=== PATIENT | male | born 1980 | race Caucasian/White ===

== ENCOUNTER 2017-12-06 08:48 | Emergency (ER) | payer MEDICAID ==
[~2017-12-06] VITALS: Ht 165.1 cm; Wt 67.0 kg
[2017-12-06 08:51] VITALS: BP 156/103; PULSE 111; RESP 20; TEMP 97.3; O2SAT 99
[2017-12-06] MEDS ORDERED: ZYPR10TA PO (09:20)
[2017-12-06] MEDS ORDERED: MULT1TAB46 (09:20)
[2017-12-06] MEDS ORDERED: ADVA100A INH (09:20)
[2017-12-06] MEDS ORDERED: VENTAER INH (09:20)
[2017-12-06] MEDS ORDERED: LAMO25 PO (09:20)
[2017-12-06] MEDS ORDERED: OMEP10SU (09:20)
[2017-12-06] MEDS ORDERED: CHLO10TA9 PO (09:20)
[2017-12-06] MEDS ORDERED: CLON.5 PO (09:20)
[2017-12-06] MEDS ORDERED: INVE9TAB (09:33)
[2017-12-06] MEDS ORDERED: CLON1TAB PO (09:33)
[2017-12-06 09:50] LABS: AUTOMATED NEUTROPHIL # 3.7 TH/MM3 (1.8-7.7); BASOPHIL # 0.1 TH/MM3 (0-0.2); BASOPHIL % 1.2 % (0.0-2.0); EOSINOPHIL % 0.4 % (0.0-4.0); HEMOGLOBIN 14.2 GM/DL (13.0-17.0); LYMPH % 8.2 % (9.0-44.0); LYMPHOCYTE # 0.4 TH/MM3 (1.0-4.8); MEAN CELL VOLUME 76.8 FL (80.0-100.0); MEAN PLATELET VOLUME 7.4 FL (7.0-11.0); MONO % 13.9 % (0.0-8.0); MONOCYTE # 0.7 TH/MM3 (0-0.9); NEUT % 76.3 % (16.0-70.0); PLATELET COUNT 340 TH/MM3 (150-450); RED BLOOD COUNT 5.08 MIL/MM3 (4.50-5.90); RED CELL DISTRIBUTION WIDTH 17.2 % (11.6-17.2); WHITE BLOOD COUNT 4.8 TH/MM3 (4.0-11.0)
[2017-12-06] MEDS ORDERED: LISI10TA3 PO (09:50)
[2017-12-06 09:52] LABS: MEAN CORPUSCULAR HGB CONC 36.4 % (32.0-36.0)
[2017-12-06 10:00] VITALS: BP 155/90; PULSE 99; RESP 15; O2SAT 98
--- NOTE | 2017-12-06 10:02 | PD ---
HPI Chief Complaint: Abnormal Results Time Seen by Provider: 09:46 Travel History International Travel<30 days: No Contact w/Intl Traveler<30days: No Traveled to known affect area: No History of Present Illness HPI This patient is brought in by correctional counselor/case manager because he had an outpatient blood draw yesterday that revealed hyponatremia. Patient says he feels okay. He does have some psychiatric illness. He reports that he drinks large quantities of plain water every day so he can stay hydrated. He used to be an alcoholic up to 9 years ago but has not had any alcohol since then. Denies vomiting. Takes no diuretics. Symptom severity is mild. No alleviating factors. Symptoms exacerbated by his excessive water intake PFSH Past Medical History Asthma: Yes Psychiatric: Yes (ocd) Schizophrenia: Yes Influenza Vaccination: No Past Surgical History Surgical History: No Previous Surgery Social History Alcohol Use: No Tobacco Use: Yes (ecig with nicotine) Substance Use: No Allergies-Medications (Allergen,Severity, Reaction): Coded Allergies: haloperidol (Verified Allergy, Intermediate, 12/06/17) shakes, tremors Uncoded Allergies: cats (Allergy, Unknown, 12/06/17) Reported Meds & Prescriptions Reported Meds & Active Scripts Active Reported Lisinopril 10 Mg Tab 10 Mg PO DAILY Clonazepam 1 Mg Tab 1 Mg PO BID Invega (Paliperidone ER) 9 Mg Tab 9 Mg DAILY Zyprexa (Olanzapine) 10 Mg Tab Unknown Dose PO BID Klonopin (Clonazepam) 0.5 Mg Tab 0.5 Mg PO BID Prilosec (Omeprazole Magnesium) 10 Mg Pow Chlorpromazine (Chlorpromazine HCl) 10 Mg Tab 10 Mg PO Q4H PRN Lamictal (Lamotrigine) 25 Mg Tab Unknown Dose PO BID Advair Diskus Inh (Fluticasone-Salmeterol Inh) 100-50 Mcg/Blist Aer 1 Puff INH BID Rinse mouth after use. Ventolin Hfa 18 GM Inh (Albuterol Sulfate) 90 Mcg/Act Aer 1 Puff INH Q4H PRN Multi Vitamin Daily (Multiple Vitamin) 1 Tab Tab Review of Systems General / Constitutional: No: Fever Eyes: No: Visual changes HENT: No: Headaches Cardiovascular: No: Chest Pain or Discomfort Respiratory: No: Shortness of Breath Gastrointestinal: No: Abdominal Pain Genitourinary: No: Dysuria Musculoskeletal: No: Pain Skin: No Rash Neurologic: No: Weakness Psychiatric: No: Depression Endocrine: No: Polydipsia Hematologic/Lymphatic: No: Easy Bruising Physical Exam Narrative GENERAL: Well-nourished, well-developed patient in no apparent distress. SKIN: Focused skin assessment reveals no rash and nodules. Skin is Warm and dry. HEAD: Atraumatic. Normocephalic. EYES: Pupils equal and round. No scleral icterus. No injection or drainage. ENT: No nasal bleeding or discharge. Mucous membranes pink and moist. NECK: Trachea midline. No JVD. CARDIOVASCULAR: Regular rate and rhythm. No murmur appreciated. RESPIRATORY: No accessory muscle use. Clear to auscultation. Breath sounds equal bilaterally. GASTROINTESTINAL: Abdomen soft, non-tender, nondistended. Hepatic and splenic margins not palpable. MUSCULOSKELETAL: No obvious deformities. No clubbing. No cyanosis. No edema. NEUROLOGICAL: Awake and alert. No obvious cranial nerve deficits. Motor grossly within normal limits. Normal speech. PSYCHIATRIC: Appropriate mood and affect; insight and judgment bit reduced Data Data Last Documented VS Vital Signs Date Time Temp Pulse Resp B/P (MAP) Pulse Ox O2 Delivery O2 Flow Rate FiO2 12/06/17 09:05 16 99 Room Air 12/06/17 08:51 97.3 111 156/103 (120) Orders Orders Complete Blood Count With Diff (12/06/17 09:01) Comprehensive Metabolic Panel (12/06/17 09:01) Labs Laboratory Tests Test 12/06/17 07:10 12/06/17 10:05 White Blood Count 4.8 TH/MM3 Red Blood Count 5.08 MIL/MM3 Hemoglobin 14.2 GM/DL Hematocrit 39.0 % Mean Corpuscular Volume 76.8 FL Mean Corpuscular Hemoglobin 28.0 PG Mean Corpuscular Hemoglobin Concent 36.4 % Red Cell Distribution Width 17.2 % Platelet Count 340 TH/MM3 Mean Platelet Volume 7.4 FL Neutrophils (%) (Auto) 76.3 % Lymphocytes (%) (Auto) 8.2 % Monocytes (%) (Auto) 13.9 % Eosinophils (%) (Auto) 0.4 % Basophils (%) (Auto) 1.2 % Neutrophils # (Auto) 3.7 TH/MM3 Lymphocytes # (Auto) 0.4 TH/MM3 Monocytes # (Auto) 0.7 TH/MM3 Eosinophils # (Auto) 0.0 TH/MM3 Basophils # (Auto) 0.1 TH/MM3 CBC Comment AUTO DIFF Differential Comment AUTO DIFF CONFIRMED Platelet Estimate NORMAL Platelet Morphology Comment NORMAL Roxane Cells Acanthocytes OCC Keratocytes OCC Blood Urea Nitrogen LESS THAN 1 MG/DL Creatinine 0.56 MG/DL Random Glucose 116 MG/DL Total Protein 6.4 GM/DL Albumin 3.4 GM/DL Calcium Level 8.4 MG/DL Alkaline Phosphatase 113 U/L Aspartate Amino Transf (AST/SGOT) 17 U/L Alanine Aminotransferase (ALT/SGPT) 21 U/L Total Bilirubin 0.3 MG/DL Sodium Level 123 MEQ/L Potassium Level 3.3 MEQ/L Chloride Level 89 MEQ/L Carbon Dioxide Level 22.2 MEQ/L Anion Gap 12 MEQ/L Estimat Glomerular Filtration Rate 164 ML/MIN MDM Medical Decision Making Medical Screen Exam Complete: Yes Emergency Medical Condition: Yes Medical Record Reviewed: Yes Differential Diagnosis Hyponatremia, renal failure, dehydration, medication side effect Narrative Course I have reviewed the patient's electronic medical record. I reviewed his outpatient lab studies from yesterday. His sodium was listed as less than 115, so the exact number is unclear. IV placed and labs sent He appears euvolemic by exam CBC is normal Metabolic profile reveals sodium of 123 Patient is asymptomatic and we have an obvious reason for him to be hyponatremic. The treatment is fluid restriction. We discussed this at length. I do not think he needs a hospital stay given he is asymptomatic and the treatment requires something he can do at home. He does not have mental status change. Diagnosis Primary Impression: Dilutional hyponatremia Additional Instructions: Utilize fluid restriction of 1.5 L per 24 hours The patient was advised to follow up with their physician and return if they worsen. Med/Other Pt SpecificInfo: Other Disposition: 01 DISCHARGE HOME Condition: Stable Ludin Yoon MD Dec 06, 2017 10:02
[2017-12-06 10:36] LABS: ACANTHOCYTES OCC (NORMAL); KERATOCYTES OCC (NORMAL)
[2017-12-06 10:43] LABS: ALBUMIN 3.4 GM/DL (3.4-5.0); ALKALINE PHOSPHATASE 113 U/L (45-117); ALT (GPT) 21 U/L (12-78); AST (GOT) 17 U/L (15-37); BICARBONATE 22.2 MEQ/L (21.0-32.0); BLOOD UREA NITROGEN LESS THAN 1 MG/DL (7-18); CALCIUM 8.4 MG/DL (8.5-10.1); CHLORIDE 89 MEQ/L (98-107); CREATININE 0.56 MG/DL (0.60-1.30); GLOMERULAR FILTRATION RATE 164 ML/MIN (>89); GLUCOSE,RANDOM 116 MG/DL (74-106); TOTAL BILIRUBIN ADULT 0.3 MG/DL (0.2-1.0); TOTAL PROTEIN 6.4 GM/DL (6.4-8.2)
[2017-12-06 10:45] LABS: SODIUM (NA) 123 MEQ/L (136-145)
[2017-12-06 11:38] VITALS: BP 154/70
== END 2017-12-06 11:41 | disposition home or self-care (01) ==
LOC: NEPE 08:48
DX: E87.1 Hypo-osmolality and hyponatremia (principal)
CPT/HCPCS: 80053; 85025; 99284

== ENCOUNTER 2018-04-21 17:44 | Inpatient (IN) ==
--- NOTE | 2018-04-21 18:41 | ED ---
HPI General Chief Complaint: Psychiatric Symptoms Stated Complaint: Pysch Eval/DBPD Time Seen by Provider: 04/21/18 18:24 Source: patient Mode of arrival: ambulatory Limitations: no limitations History of Present Illness HPI Narrative: Patient is a 37-year-old male presenting to the emergency department under Perez act for psychiatric evaluation. Per the Perez act report patient did not feel safe. Patient states that his apartment is a sanctuary. He states that he is afraid of people, crowds, not every day but most days. He states he becomes very anxious while he is in public. He felt that because he was feeling scared in his apartment he called 911 to be evaluated. Patient states that he is not on any blood pressure medicine, his blood pressure goes up when he is around people. Past medical history significant for schizophrenia, OCD. Patient denies any suicidal homicidal ideations. He denies any pain, he does report that he hears voices sometimes. Patient reports compliance with his medications. Symptom onset is unknown, symptoms are mild. Patient is cooperative in the emergency department. Onset (ago): unknown Duration: getting worse History of same: Yes Associated psychiatric symptoms: Reports racing thoughts and visual hallucinations Associated symptoms: Reports denies other symptoms Treatments prior to arrival: Reports none Related Data Home Medications Medication Instructions Recorded Confirmed Multi Vitamin 04/22/18 04/22/18 clonazepam 0.5 mg PO BID 04/22/18 04/22/18 lamotrigine [Lamictal] 150 mg PO DAILY 04/22/18 04/22/18 olanzapine [Zyprexa] 20 mg PO HS 04/22/18 04/22/18 paliperidone [Invega] 9 mg PO DAILY 04/22/18 04/22/18 Allergies Allergy/AdvReac Type Severity Reaction Status Date / Time cat dander Allergy Edema, Verified 04/21/18 18:01 Localized chlorpromazine Allergy Fever Verified 04/21/18 18:00 [From Thorazine] haloperidol [From Haldol] Allergy Shakiness Verified 04/21/18 18:00 [facility] Medical History Medical History Asthma (Acute) Bipolar 1 disorder (Acute) Hypertension (Acute) Obsessive compulsive disorder (Acute) Schizoaffective disorder (Acute) Surgical history unknown (Acute) Social History Social History Substance History: No History of Abuse and Past History ("Tried a little bit of everything ".) Smoking Status: Current every day smoker Tobacco Type: Cigarettes Packs Per Day: 2 Cigarettes Per Day: 40.0 Years Smoked: 20 Pack-Years: 40.00 How Often Do You Have a Drink Containing Alcohol: Never Hx Recent Travel: No Recent Travel in [facility] within the Last 8 Weeks: No Recent Out of Country Travel within the Last 8 Weeks: No Course Initial Documented Vital Signs Temperature 98.5 F 04/21/18 18:01 Pulse Rate 99 H 04/21/18 18:01 Respiratory Rate 16 04/21/18 18:01 Blood Pressure 203/127 H 04/21/18 18:01 Pulse Oximetry 99 04/21/18 18:01 Last Documented Vital Signs Temperature 97.9 F 04/23/18 20:00 Pulse Rate 70 04/24/18 01:00 Respiratory Rate 17 04/24/18 01:00 Blood Pressure 167/103 H 04/24/18 01:00 Pulse Oximetry 99 04/24/18 01:00 Medical Decision Making [facility] Narrative Medical Screen Exam Complete: Yes Emergency Medical Condition: Yes Lab Data Result diagrams: 04/23/18 10:14 04/23/18 15:00 Lab Results 04/21/18 04/21/18 04/21/18 Range/Units 19:20 19:20 19:20 WBC 3.4 L (4.0-11.0) th/mm3 RBC 4.40 L (4.50-5.90) mil/mm3 Hgb 12.1 L (13.0-17.0) gm/dL Hct 35.1 L (39.0-51.0) % MCV 79.8 L (80.0-100.0) fL MCH 27.6 (27.0-34.0) pg MCHC 34.6 (32.0-36.0) % RDW 14.8 (11.6-17.2) % Plt Count 246 (150-450) th/mm3 MPV 7.2 (7.0-11.0) fL Prelim Diff (Auto) Neut % (Auto) 51.0 (16.0-70.0) % Lymph % (Auto) 37.0 (9.0-44.0) % Banks % (Auto) 11.1 H (0.0-8.0) % Eos % (Auto) 0.6 (0.0-4.0) % Baso % (Auto) 0.3 (0.0-2.0) % Neut # (Auto) 1.7 L (1.8-7.7) th/mm3 Lymph # (Auto) 1.2 (1.0-4.8) th/mm3 Banks # (Auto) 0.4 (0.0-0.9) th/mm3 Eos # (Auto) 0.0 (0.0-0.4) th/mm3 Baso # (Auto) 0.0 (0.0-0.2) th/mm3 WBC Differential . Seg Neuts % (Manual) (16-70) % Lymphocytes % (Manual) (9-44) % Monocytes % (Manual) (0-8) % Abs Neuts (Manual) (1.8-7.7) th/mm3 Differential Comment Auto diff final Platelet Estimate (Normal) Platelet Morphology (Normal) RBC Morphology (Normal) PT (9.8-11.6) sec INR Ratio APTT (24.3-30.1) sec Sodium 110 L* (136-145) meq/L Potassium 4.1 (3.5-5.1) meq/L Chloride 77 L (98-107) meq/L Carbon Dioxide 21.7 (21.0-32.0) meq/L Anion Gap 11 (5-15) meq/L BUN 1 L (7-18) mg/dL Creatinine 0.63 (0.60-1.30) mg/dL Estimated GFR Greater than 89 (>89) mL/min POC Glucose (68-110) mg/dl Random Glucose 89 (74-106) mg/dL Calcium 8.2 L (8.5-10.1) mg/dL Phosphorus (2.5-4.9) mg/dL Magnesium 1.5 (1.5-2.5) mg/dL Total Bilirubin 0.4 (0.2-1.0) mg/dL AST 41 H (15-37) U/L ALT 28 (12-78) U/L Alkaline Phosphatase 94 (45-117) U/L Total Protein 7.1 (6.4-8.2) g/dL Albumin 3.6 (3.4-5.0) g/dL Vitamin B12 (193-986) pg/mL Folate (3.1-17.5) ng/mL TSH 1.490 (0.358-3.740) uIU/mL Urine Color (Yellw/Straw) Urine Clarity (Clear) Urine pH (5.0-8.5) Ur Specific [place] (1.002-1.035) Urine Protein (Neg-Trace) mg/dL Urine Glucose (UA) (Negative) mg/dL Urine Ketones (Negative) mg/dL Urine Occult Blood (Negative) Urine Nitrate (Negative) Urine Bilirubin (Negative) Urine Urobilinogen (Less than 2) mg/dL Ur Leukocyte Esterase (Negative) Urine WBC (0-5) /hpf Micro UA Comment Ur Microscopic Review Urine Culture Comments Nasal Screen MRSA (PCR) (Negative) Urine Opiates Screen Neg (Neg) Ur Barbiturates Screen Neg (Neg) Ur Amphetamines Screen Neg (Neg) U Benzodiazepines Scrn Neg (Neg) Urine Cocaine Screen Neg (Neg) U Cannabinoids Screen Neg (Neg) Serum Alcohol Less than 3 (0-5) mg/dL 04/21/18 04/21/18 04/21/18 Range/Units 19:20 22:13 22:18 WBC (4.0-11.0) th/mm3 RBC (4.50-5.90) mil/mm3 Hgb (13.0-17.0) gm/dL Hct (39.0-51.0) % MCV (80.0-100.0) fL MCH (27.0-34.0) pg MCHC (32.0-36.0) % RDW (11.6-17.2) % Plt Count (150-450) th/mm3 MPV (7.0-11.0) fL Prelim Diff (Auto) Neut % (Auto) (16.0-70.0) % Lymph % (Auto) (9.0-44.0) % Banks % (Auto) (0.0-8.0) % Eos % (Auto) (0.0-4.0) % Baso % (Auto) (0.0-2.0) % Neut # (Auto) (1.8-7.7) th/mm3 Lymph # (Auto) (1.0-4.8) th/mm3 [place] # (Auto) (0.0-0.9) th/mm3 Eos # (Auto) (0.0-0.4) th/mm3 Baso # (Auto) (0.0-0.2) th/mm3 WBC Differential Seg Neuts % (Manual) (16-70) % Lymphocytes % (Manual) (9-44) % Monocytes % (Manual) (0-8) % Abs Neuts (Manual) (1.8-7.7) th/mm3 Differential Comment Platelet Estimate (Normal) Platelet Morphology (Normal) RBC Morphology (Normal) PT (9.8-11.6) sec INR Ratio APTT (24.3-30.1) sec Sodium (136-145) meq/L Potassium (3.5-5.1) meq/L Chloride (98-107) meq/L Carbon Dioxide (21.0-32.0) meq/L Anion Gap (5-15) meq/L BUN (7-18) mg/dL Creatinine (0.60-1.30) mg/dL Estimated GFR (>89) mL/min POC Glucose 114 H (68-110) mg/dl Random Glucose (74-106) mg/dL Calcium (8.5-10.1) mg/dL Phosphorus (2.5-4.9) mg/dL Magnesium (1.5-2.5) mg/dL Total Bilirubin (0.2-1.0) mg/dL AST (15-37) U/L ALT (12-78) U/L Alkaline Phosphatase (45-117) U/L Total Protein (6.4-8.2) g/dL Albumin (3.4-5.0) g/dL Vitamin B12 (193-986) pg/mL Folate (3.1-17.5) ng/mL TSH (0.358-3.740) uIU/mL Urine Color Colorless (Yellw/Straw) Urine Clarity Clear (Clear) Urine pH 7.0 (5.0-8.5) Ur Specific [place] 1.000 L (1.002-1.035) Urine Protein Negative (Neg-Trace) mg/dL Urine Glucose (UA) Negative (Negative) mg/dL Urine Ketones Negative (Negative) mg/dL Urine Occult Blood Negative (Negative) Urine Nitrate Negative (Negative) Urine Bilirubin Negative (Negative) Urine Urobilinogen Less than 2 (Less than 2) mg/dL Ur Leukocyte Esterase Negative (Negative) Urine WBC Less than 1 (0-5) /hpf Micro UA Comment Culture not ind Ur Microscopic Review Not Reportable Urine Culture Comments Culture not ind Nasal Screen MRSA (PCR) Not detected (Negative) Urine Opiates Screen (Neg) Ur Barbiturates Screen (Neg) Ur Amphetamines Screen (Neg) U Benzodiazepines Scrn (Neg) Urine Cocaine Screen (Neg) U Cannabinoids Screen (Neg) Serum Alcohol (0-5) mg/dL 04/21/18 04/22/18 04/22/18 Range/Units 23:30 03:40 03:40 WBC 2.1 L (4.0-11.0) th/mm3 RBC 5.11 (4.50-5.90) mil/mm3 Hgb 14.1 D (13.0-17.0) gm/dL Hct 41.4 (39.0-51.0) % MCV 81.0 (80.0-100.0) fL MCH 27.6 (27.0-34.0) pg MCHC 34.1 (32.0-36.0) % RDW 15.1 (11.6-17.2) % Plt Count 297 (150-450) th/mm3 MPV 7.6 (7.0-11.0) fL Prelim Diff (Auto) Manual diff required Neut % (Auto) (16.0-70.0) % Lymph % (Auto) (9.0-44.0) % Banks % (Auto) (0.0-8.0) % Eos % (Auto) (0.0-4.0) % Baso % (Auto) (0.0-2.0) % Neut # (Auto) (1.8-7.7) th/mm3 Lymph # (Auto) (1.0-4.8) th/mm3 [place] # (Auto) (0.0-0.9) th/mm3 Eos # (Auto) (0.0-0.4) th/mm3 Baso # (Auto) (0.0-0.2) th/mm3 WBC Differential Manual diff final Seg Neuts % (Manual) 43 (16-70) % Lymphocytes % (Manual) 50 H (9-44) % Monocytes % (Manual) 7 (0-8) % Abs Neuts (Manual) 0.9 L (1.8-7.7) th/mm3 Differential Comment . Platelet Estimate Normal (Normal) Platelet Morphology Normal (Normal) RBC Morphology Normal (Normal) PT 10.3 (9.8-11.6) sec INR 1.0 Ratio APTT 31.7 H (24.3-30.1) sec Sodium 123 L* D (136-145) meq/L Potassium (3.5-5.1) meq/L Chloride (98-107) meq/L Carbon Dioxide (21.0-32.0) meq/L Anion Gap (5-15) meq/L BUN (7-18) mg/dL Creatinine (0.60-1.30) mg/dL Estimated GFR (>89) mL/min POC Glucose (68-110) mg/dl Random Glucose (74-106) mg/dL Calcium (8.5-10.1) mg/dL Phosphorus (2.5-4.9) mg/dL Magnesium (1.5-2.5) mg/dL Total Bilirubin (0.2-1.0) mg/dL AST (15-37) U/L ALT (12-78) U/L Alkaline Phosphatase (45-117) U/L Total Protein (6.4-8.2) g/dL Albumin (3.4-5.0) g/dL Vitamin B12 (193-986) pg/mL Folate (3.1-17.5) ng/mL TSH (0.358-3.740) uIU/mL Urine Color (Yellw/Straw) Urine Clarity (Clear) Urine pH (5.0-8.5) Ur Specific [place] (1.002-1.035) Urine Protein (Neg-Trace) mg/dL Urine Glucose (UA) (Negative) mg/dL Urine Ketones (Negative) mg/dL Urine Occult Blood (Negative) Urine Nitrate (Negative) Urine Bilirubin (Negative) Urine Urobilinogen (Less than 2) mg/dL Ur Leukocyte Esterase (Negative) Urine WBC (0-5) /hpf Micro UA Comment Ur Microscopic Review Urine Culture Comments Nasal Screen MRSA (PCR) (Negative) Urine Opiates Screen (Neg) Ur Barbiturates Screen (Neg) Ur Amphetamines Screen (Neg) U Benzodiazepines Scrn (Neg) Urine Cocaine Screen (Neg) U Cannabinoids Screen (Neg) Serum Alcohol (0-5) mg/dL 04/22/18 04/22/18 04/22/18 Range/Units 03:40 08:33 11:48 WBC (4.0-11.0) th/mm3 RBC (4.50-5.90) mil/mm3 Hgb (13.0-17.0) gm/dL Hct (39.0-51.0) % MCV (80.0-100.0) fL MCH (27.0-34.0) pg MCHC (32.0-36.0) % RDW (11.6-17.2) % Plt Count (150-450) th/mm3 MPV (7.0-11.0) fL Prelim Diff (Auto) Neut % (Auto) (16.0-70.0) % Lymph % (Auto) (9.0-44.0) % [place] % (Auto) (0.0-8.0) % Eos % (Auto) (0.0-4.0) % Baso % (Auto) (0.0-2.0) % Neut # (Auto) (1.8-7.7) th/mm3 Lymph # (Auto) (1.0-4.8) th/mm3 [place] # (Auto) (0.0-0.9) th/mm3 Eos # (Auto) (0.0-0.4) th/mm3 Baso # (Auto) (0.0-0.2) th/mm3 WBC Differential Seg Neuts % (Manual) (16-70) % Lymphocytes % (Manual) (9-44) % Monocytes % (Manual) (0-8) % Abs Neuts (Manual) (1.8-7.7) th/mm3 Differential Comment Platelet Estimate (Normal) Platelet Morphology (Normal) RBC Morphology (Normal) PT (9.8-11.6) sec INR Ratio APTT (24.3-30.1) sec Sodium 131 L 128 L 129 L (136-145) meq/L Potassium 3.8 (3.5-5.1) meq/L Chloride 98 D (98-107) meq/L Carbon Dioxide 24.4 (21.0-32.0) meq/L Anion Gap 9 (5-15) meq/L BUN 2 L (7-18) mg/dL Creatinine 0.59 L (0.60-1.30) mg/dL Estimated GFR Greater than 89 (>89) mL/min POC Glucose (68-110) mg/dl Random Glucose 107 H (74-106) mg/dL Calcium 8.7 (8.5-10.1) mg/dL Phosphorus 3.3 (2.5-4.9) mg/dL Magnesium 2.0 (1.5-2.5) mg/dL Total Bilirubin 0.3 (0.2-1.0) mg/dL AST 22 (15-37) U/L ALT 26 (12-78) U/L Alkaline Phosphatase 105 (45-117) U/L Total Protein 7.5 (6.4-8.2) g/dL Albumin 4.0 (3.4-5.0) g/dL Vitamin B12 (193-986) pg/mL Folate (3.1-17.5) ng/mL TSH (0.358-3.740) uIU/mL Urine Color (Yellw/Straw) Urine Clarity (Clear) Urine pH (5.0-8.5) Ur Specific [place] (1.002-1.035) Urine Protein (Neg-Trace) mg/dL Urine Glucose (UA) (Negative) mg/dL Urine Ketones (Negative) mg/dL Urine Occult Blood (Negative) Urine Nitrate (Negative) Urine Bilirubin (Negative) Urine Urobilinogen (Less than 2) mg/dL Ur Leukocyte Esterase (Negative) Urine WBC (0-5) /hpf Micro UA Comment Ur Microscopic Review Urine Culture Comments Nasal Screen MRSA (PCR) (Negative) Urine Opiates Screen (Neg) Ur Barbiturates Screen (Neg) Ur Amphetamines Screen (Neg) U Benzodiazepines Scrn (Neg) Urine Cocaine Screen (Neg) U Cannabinoids Screen (Neg) Serum Alcohol (0-5) mg/dL 04/22/18 04/22/18 04/23/18 Range/Units 14:20 16:26 05:18 WBC (4.0-11.0) th/mm3 RBC (4.50-5.90) mil/mm3 Hgb (13.0-17.0) gm/dL Hct (39.0-51.0) % MCV (80.0-100.0) fL MCH (27.0-34.0) pg MCHC (32.0-36.0) % RDW (11.6-17.2) % Plt Count (150-450) th/mm3 MPV (7.0-11.0) fL Prelim Diff (Auto) Neut % (Auto) (16.0-70.0) % Lymph % (Auto) (9.0-44.0) % [place] % (Auto) (0.0-8.0) % Eos % (Auto) (0.0-4.0) % Baso % (Auto) (0.0-2.0) % Neut # (Auto) (1.8-7.7) th/mm3 Lymph # (Auto) (1.0-4.8) th/mm3 [place] # (Auto) (0.0-0.9) th/mm3 Eos # (Auto) (0.0-0.4) th/mm3 Baso # (Auto) (0.0-0.2) th/mm3 WBC Differential Seg Neuts % (Manual) (16-70) % Lymphocytes % (Manual) (9-44) % Monocytes % (Manual) (0-8) % Abs Neuts (Manual) (1.8-7.7) th/mm3 Differential Comment Platelet Estimate (Normal) Platelet Morphology (Normal) RBC Morphology (Normal) PT (9.8-11.6) sec INR Ratio APTT (24.3-30.1) sec Sodium 131 L 130 L 130 L (136-145) meq/L Potassium (3.5-5.1) meq/L Chloride (98-107) meq/L Carbon Dioxide (21.0-32.0) meq/L Anion Gap (5-15) meq/L BUN (7-18) mg/dL Creatinine (0.60-1.30) mg/dL Estimated GFR (>89) mL/min POC Glucose (68-110) mg/dl Random Glucose (74-106) mg/dL Calcium (8.5-10.1) mg/dL Phosphorus (2.5-4.9) mg/dL Magnesium (1.5-2.5) mg/dL Total Bilirubin (0.2-1.0) mg/dL AST (15-37) U/L ALT (12-78) U/L Alkaline Phosphatase (45-117) U/L Total Protein (6.4-8.2) g/dL Albumin (3.4-5.0) g/dL Vitamin B12 295 (193-986) pg/mL Folate 12.9 (3.1-17.5) ng/mL TSH (0.358-3.740) uIU/mL Urine Color (Yellw/Straw) Urine Clarity (Clear) Urine pH (5.0-8.5) Ur Specific [place] (1.002-1.035) Urine Protein (Neg-Trace) mg/dL Urine Glucose (UA) (Negative) mg/dL Urine Ketones (Negative) mg/dL Urine Occult Blood (Negative) Urine Nitrate (Negative) Urine Bilirubin (Negative) Urine Urobilinogen (Less than 2) mg/dL Ur Leukocyte Esterase (Negative) Urine WBC (0-5) /hpf Micro UA Comment Ur Microscopic Review Urine Culture Comments Nasal Screen MRSA (PCR) (Negative) Urine Opiates Screen (Neg) Ur Barbiturates Screen (Neg) Ur Amphetamines Screen (Neg) U Benzodiazepines Scrn (Neg) Urine Cocaine Screen (Neg) U Cannabinoids Screen (Neg) Serum Alcohol (0-5) mg/dL 04/23/18 04/23/18 Range/Units 10:14 15:00 WBC 2.9 L (4.0-11.0) th/mm3 RBC 4.46 L (4.50-5.90) mil/mm3 Hgb 12.1 L D (13.0-17.0) gm/dL Hct 35.6 L (39.0-51.0) % MCV 79.9 L (80.0-100.0) fL MCH 27.1 (27.0-34.0) pg MCHC 33.9 (32.0-36.0) % RDW 14.9 (11.6-17.2) % Plt Count 250 (150-450) th/mm3 MPV 7.4 (7.0-11.0) fL Prelim Diff (Auto) Neut % (Auto) 58.7 (16.0-70.0) % Lymph % (Auto) 30.2 (9.0-44.0) % [place] % (Auto) 10.5 H (0.0-8.0) % Eos % (Auto) 0.3 (0.0-4.0) % Baso % (Auto) 0.3 (0.0-2.0) % Neut # (Auto) 1.7 L (1.8-7.7) th/mm3 Lymph # (Auto) 0.9 L (1.0-4.8) th/mm3 [place] # (Auto) 0.3 (0.0-0.9) th/mm3 Eos # (Auto) 0.0 (0.0-0.4) th/mm3 Baso # (Auto) 0.0 (0.0-0.2) th/mm3 WBC Differential . Seg Neuts % (Manual) (16-70) % Lymphocytes % (Manual) (9-44) % Monocytes % (Manual) (0-8) % Abs Neuts (Manual) (1.8-7.7) th/mm3 Differential Comment Auto diff final Platelet Estimate (Normal) Platelet Morphology (Normal) RBC Morphology (Normal) PT (9.8-11.6) sec INR Ratio APTT (24.3-30.1) sec Sodium 129 L (136-145) meq/L Potassium 4.0 (3.5-5.1) meq/L Chloride 97 L (98-107) meq/L Carbon Dioxide 24.3 (21.0-32.0) meq/L Anion Gap 8 (5-15) meq/L BUN 3 L (7-18) mg/dL Creatinine 0.77 (0.60-1.30) mg/dL Estimated GFR Greater than 89 (>89) mL/min POC Glucose (68-110) mg/dl Random Glucose 134 H (74-106) mg/dL Calcium 8.9 (8.5-10.1) mg/dL Phosphorus (2.5-4.9) mg/dL Magnesium (1.5-2.5) mg/dL Total Bilirubin (0.2-1.0) mg/dL AST (15-37) U/L ALT (12-78) U/L Alkaline Phosphatase (45-117) U/L Total Protein (6.4-8.2) g/dL Albumin (3.4-5.0) g/dL Vitamin B12 (193-986) pg/mL Folate (3.1-17.5) ng/mL TSH (0.358-3.740) uIU/mL Urine Color (Yellw/Straw) Urine Clarity (Clear) Urine pH (5.0-8.5) Ur Specific [place] (1.002-1.035) Urine Protein (Neg-Trace) mg/dL Urine Glucose (UA) (Negative) mg/dL Urine Ketones (Negative) mg/dL Urine Occult Blood (Negative) Urine Nitrate (Negative) Urine Bilirubin (Negative) Urine Urobilinogen (Less than 2) mg/dL Ur Leukocyte Esterase (Negative) Urine WBC (0-5) /hpf Micro UA Comment Ur Microscopic Review Urine Culture Comments Nasal Screen MRSA (PCR) (Negative) Urine Opiates Screen (Neg) Ur Barbiturates Screen (Neg) Ur Amphetamines Screen (Neg) U Benzodiazepines Scrn (Neg) Urine Cocaine Screen (Neg) U Cannabinoids Screen (Neg) Serum Alcohol (0-5) mg/dL Imaging Data Radiologist's impression: Chest X-Ray 04/22/18 00:00 CONCLUSION: 1. No acute cardiopulmonary disease. ECG Data Attestation: I personally reviewed and interpreted this ECG as follows: Interpretation: Twelve-lead EKG was reviewed by me. Normal sinus rhythm, normal axis, nonspecific S or T wave changes. Heart rate of 72 bpm. Discharge Plan Discharge Disposition Patient Disposition: 30 Still Patient Physicians Team ED Provider: Sierra Miles ED Midlevel Provider: Nina Epps Primary Care Provider: UNKNOWN, Attending Provider: Tanvir Rebolledo Other Providers: Osmani Ryan ; Kvng Hurtado Status ED Status: Left Department Discharge Information Discharge Date/Time: 04/21/18 22:17
[2018-04-21 19:42] LABS: Baso % (Auto) 0.3 % (0.0-2.0); Eos % (Auto) 0.6 % (0.0-4.0); Hematocrit 35.1 % (39.0-51.0); Hemoglobin 12.1 gm/dL (13.0-17.0); Lymph # (Auto) 1.2 th/mm3 (1.0-4.8); Mean Corpuscular HGB Conc 34.6 % (32.0-36.0); Mean Corpuscular Hemoglobin 27.6 pg (27.0-34.0); Mean Corpuscular Volume 79.8 fL (80.0-100.0); Mean Platelet Volume 7.2 fL (7.0-11.0); Mono # (Auto) 0.4 th/mm3 (0.0-0.9); Mono % (Auto) 11.1 % (0.0-8.0); Neut # (Auto) 1.7 th/mm3 (1.8-7.7); Platelet Count 246 th/mm3 (150-450); Red Cell Distribution Width 14.8 % (11.6-17.2); White Blood Count 3.4 th/mm3 (4.0-11.0)
[2018-04-21 19:53] LABS: Bilirubin,Urine Negative (Negative); Clarity,Urine Clear (Clear); Color,Urine Colorless (Yellw/Straw); Glucose,Urine (UA) Negative (Negative); Leukocyte Esterase,Urine Negative (Negative); Nitrite,Urine Negative (Negative)
[2018-04-21 19:59] LABS: Amphetamine Screen,Urine Neg (Neg); Barbiturate Screen,Urine Neg (Neg); Cannabinoid Screen,Urine Neg (Neg); Cocaine Screen,Urine Neg (Neg)
[2018-04-21 20:00] LABS: Opiate Screen,Urine Neg (Neg)
[2018-04-21] MEDS ORDERED: Metoprolol Inj 5 MG/5 ML Vial IV.PUSH ONE (20:04)
[2018-04-21 20:15] LABS: Anion Gap 11 meq/L (5-15)
[2018-04-21 20:22] LABS: Alanine Aminotransferase 28 U/L (12-78); Albumin 3.6 g/dL (3.4-5.0); Alkaline Phosphatase 94 U/L (45-117); Aspartate Aminotransferase 41 U/L (15-37); Blood Urea Nitrogen 1 mg/dL (7-18); Calcium 8.2 mg/dL (8.5-10.1); Carbon Dioxide 21.7 meq/L (21.0-32.0); Chloride 77 meq/L (98-107); Glomerular Filtration Rate Greater Than 89 mL/min (>89); Glucose,Random 89 mg/dL (74-106); Magnesium 1.5 mg/dL (1.5-2.5); Total Protein 7.1 g/dL (6.4-8.2)
[2018-04-21 20:23] LABS: Potassium 4.1 meq/L (3.5-5.1); Sodium 110 meq/L (136-145)
--- NOTE | 2018-04-21 20:42 | ED ---
HPI General Chief Complaint: Psychiatric Symptoms Stated Complaint: Pysch Eval/DBPD Time Seen by Provider: 04/21/18 18:24 Source: patient Mode of arrival: ambulatory Limitations: no limitations History of Present Illness HPI Narrative: 37-year-old male who was brought in [facility] because he was unable to take care of himself. He complained of visual and auditory hallucinations and anxiety. He told me that he has been drinking a lot of water almost 2 gallons a day and a lot of tea. Patient denies of any headache or dizziness. The exact onset of symptoms is difficult to be determined given his condition but he did appear to be disheveled. Vital signs were suggestive of hypertension. Duration: intermittent and getting worse Associated symptoms: Reports denies other symptoms Treatments prior to arrival: Reports none Related Data Home Medications Medication Instructions Recorded Confirmed Multi Vitamin 04/22/18 04/22/18 clonazepam 0.5 mg PO BID 04/22/18 04/22/18 lamotrigine [Lamictal] 150 mg PO DAILY 04/22/18 04/22/18 olanzapine [Zyprexa] 20 mg PO HS 04/22/18 04/22/18 paliperidone [Invega] 9 mg PO DAILY 04/22/18 04/22/18 Allergies Allergy/AdvReac Type Severity Reaction Status Date / Time cat dander Allergy Edema, Verified 04/21/18 18:01 Localized chlorpromazine Allergy Fever Verified 04/21/18 18:00 [From Thorazine] haloperidol [From Haldol] Allergy Shakiness Verified 04/21/18 18:00 Review of Systems ROS: all other systems reviewed are negative [facility] Medical History Medical History Asthma (Acute) Bipolar 1 disorder (Acute) Hypertension (Acute) Obsessive compulsive disorder (Acute) Schizoaffective disorder (Acute) Surgical history unknown (Acute) Social History Social History Substance History: No History of Abuse and Past History ("Tried a little bit of everything ".) Smoking Status: Current every day smoker Tobacco Type: Cigarettes Packs Per Day: 2 Cigarettes Per Day: 40.0 Years Smoked: 20 Pack-Years: 40.00 How Often Do You Have a Drink Containing Alcohol: Never Hx Recent Travel: No Recent Travel in [facility] within the Last 8 Weeks: No Recent Out of Country Travel within the Last 8 Weeks: No Immunization History Tetanus Immunization: Unsure Exam Narrative Exam Narrative: GENERAL: Awake, alert, anxious, disheveled SKIN: Focused skin assessment warm/dry. Disheveled. HEAD: Atraumatic. Normocephalic. EYES: Pupils equal and round. No scleral icterus. No injection or drainage. ENT: No nasal bleeding or discharge. Mucous membranes pink and moist. NECK: Trachea midline. No JVD. CARDIOVASCULAR: Regular rate and rhythm. No murmur appreciated. RESPIRATORY: No accessory muscle use. Clear to auscultation. Breath sounds equal bilaterally. GASTROINTESTINAL: Abdomen soft, non-tender, nondistended. Hepatic and splenic margins not palpable. MUSCULOSKELETAL: No obvious deformities. No clubbing. No cyanosis. No edema. NEUROLOGICAL: Awake and alert. No obvious cranial nerve deficits. Motor grossly within normal limits. Normal speech. PSYCHIATRIC: Appropriate mood and affect; insight and judgment normal. Course Initial Documented Vital Signs Temperature 98.5 F 04/21/18 18:01 Pulse Rate 99 H 04/21/18 18:01 Respiratory Rate 16 04/21/18 18:01 Blood Pressure 203/127 H 04/21/18 18:01 Pulse Oximetry 99 04/21/18 18:01 Last Documented Vital Signs Temperature 97.9 F 04/23/18 20:00 Pulse Rate 70 04/24/18 01:00 Respiratory Rate 17 04/24/18 01:00 Blood Pressure 167/103 H 04/24/18 01:00 Pulse Oximetry 99 04/24/18 01:00 Critical Care Time Critical Care Time: Yes Total Critical Care Time: 30 Attestation: Aggregate critical care time was 30 minutes. Time to perform other separately billable procedures was not included in the critical care time. My time did not include minutes spent treating any other patients simultaneously or on activities that did not directly contribute to the patient's treatment. The services I provided to this patient were to treat and/or prevent clinically significant deterioration that could result in: Critical hyponatremia, 3% hypertonic saline replacement I provided critical care services requiring my management, as noted below: Chart data review, documentation time, medication orders and management, vital sign assessments/reviewing monitor data, ordering and reviewing lab tests, ordering and interpreting/reviewing x-rays and diagnostic studies, care of the patient and discussion of the patient with the admitting physicians. Medical Decision Making MDM Narrative Medical decision making narrative: 8:47 PM blood test result shows critical value of sodium of 110. The last sodium value was 123 few months ago. I have ordered 3% normal saline for the patient. I discussed the case with wind turbine electrical engineer Dr. Wadsworth who has accepted the patient. The nurse told me that he has urinated 5 L of urine since he has been here and continues to ask for water. With that information probably is dilutional hyponatremia from compulsive water drinking. He is not on lithium. Medical Screen Exam Complete: Yes Emergency Medical Condition: Yes Lab Data Result diagrams: 04/23/18 10:14 04/23/18 15:00 Lab Results 04/21/18 04/21/18 04/21/18 Range/Units 19:20 19:20 19:20 WBC 3.4 L (4.0-11.0) th/mm3 RBC 4.40 L (4.50-5.90) mil/mm3 Hgb 12.1 L (13.0-17.0) gm/dL Hct 35.1 L (39.0-51.0) % MCV 79.8 L (80.0-100.0) fL MCH 27.6 (27.0-34.0) pg MCHC 34.6 (32.0-36.0) % RDW 14.8 (11.6-17.2) % Plt Count 246 (150-450) th/mm3 MPV 7.2 (7.0-11.0) fL Prelim Diff (Auto) Neut % (Auto) 51.0 (16.0-70.0) % Lymph % (Auto) 37.0 (9.0-44.0) % [place] % (Auto) 11.1 H (0.0-8.0) % Eos % (Auto) 0.6 (0.0-4.0) % Baso % (Auto) 0.3 (0.0-2.0) % Neut # (Auto) 1.7 L (1.8-7.7) th/mm3 Lymph # (Auto) 1.2 (1.0-4.8) th/mm3 [place] # (Auto) 0.4 (0.0-0.9) th/mm3 Eos # (Auto) 0.0 (0.0-0.4) th/mm3 Baso # (Auto) 0.0 (0.0-0.2) th/mm3 WBC Differential . Seg Neuts % (Manual) (16-70) % Lymphocytes % (Manual) (9-44) % Monocytes % (Manual) (0-8) % Abs Neuts (Manual) (1.8-7.7) th/mm3 Differential Comment Auto diff final Platelet Estimate (Normal) Platelet Morphology (Normal) RBC Morphology (Normal) PT (9.8-11.6) sec INR Ratio APTT (24.3-30.1) sec Sodium 110 L* (136-145) meq/L Potassium 4.1 (3.5-5.1) meq/L Chloride 77 L (98-107) meq/L Carbon Dioxide 21.7 (21.0-32.0) meq/L Anion Gap 11 (5-15) meq/L BUN 1 L (7-18) mg/dL Creatinine 0.63 (0.60-1.30) mg/dL Estimated GFR Greater than 89 (>89) mL/min POC Glucose (68-110) mg/dl Random Glucose 89 (74-106) mg/dL Calcium 8.2 L (8.5-10.1) mg/dL Phosphorus (2.5-4.9) mg/dL Magnesium 1.5 (1.5-2.5) mg/dL Total Bilirubin 0.4 (0.2-1.0) mg/dL AST 41 H (15-37) U/L ALT 28 (12-78) U/L Alkaline Phosphatase 94 (45-117) U/L Total Protein 7.1 (6.4-8.2) g/dL Albumin 3.6 (3.4-5.0) g/dL Vitamin B12 (193-986) pg/mL Folate (3.1-17.5) ng/mL TSH 1.490 (0.358-3.740) uIU/mL Urine Color (Yellw/Straw) Urine Clarity (Clear) Urine pH (5.0-8.5) Ur Specific [place] (1.002-1.035) Urine Protein (Neg-Trace) mg/dL Urine Glucose (UA) (Negative) mg/dL Urine Ketones (Negative) mg/dL Urine Occult Blood (Negative) Urine Nitrate (Negative) Urine Bilirubin (Negative) Urine Urobilinogen (Less than 2) mg/dL Ur Leukocyte Esterase (Negative) Urine WBC (0-5) /hpf Micro UA Comment Ur Microscopic Review Urine Culture Comments Nasal Screen MRSA (PCR) (Negative) Urine Opiates Screen Neg (Neg) Ur Barbiturates Screen Neg (Neg) Ur Amphetamines Screen Neg (Neg) U Benzodiazepines Scrn Neg (Neg) Urine Cocaine Screen Neg (Neg) U Cannabinoids Screen Neg (Neg) Serum Alcohol Less than 3 (0-5) mg/dL 04/21/18 04/21/18 04/21/18 Range/Units 19:20 22:13 22:18 WBC (4.0-11.0) th/mm3 RBC (4.50-5.90) mil/mm3 Hgb (13.0-17.0) gm/dL Hct (39.0-51.0) % MCV (80.0-100.0) fL MCH (27.0-34.0) pg MCHC (32.0-36.0) % RDW (11.6-17.2) % Plt Count (150-450) th/mm3 MPV (7.0-11.0) fL Prelim Diff (Auto) Neut % (Auto) (16.0-70.0) % Lymph % (Auto) (9.0-44.0) % [place] % (Auto) (0.0-8.0) % Eos % (Auto) (0.0-4.0) % Baso % (Auto) (0.0-2.0) % Neut # (Auto) (1.8-7.7) th/mm3 Lymph # (Auto) (1.0-4.8) th/mm3 [place] # (Auto) (0.0-0.9) th/mm3 Eos # (Auto) (0.0-0.4) th/mm3 Baso # (Auto) (0.0-0.2) th/mm3 WBC Differential Seg Neuts % (Manual) (16-70) % Lymphocytes % (Manual) (9-44) % Monocytes % (Manual) (0-8) % Abs Neuts (Manual) (1.8-7.7) th/mm3 Differential Comment Platelet Estimate (Normal) Platelet Morphology (Normal) RBC Morphology (Normal) PT (9.8-11.6) sec INR Ratio APTT (24.3-30.1) sec Sodium (136-145) meq/L Potassium (3.5-5.1) meq/L Chloride (98-107) meq/L Carbon Dioxide (21.0-32.0) meq/L Anion Gap (5-15) meq/L BUN (7-18) mg/dL Creatinine (0.60-1.30) mg/dL Estimated GFR (>89) mL/min POC Glucose 114 H (68-110) mg/dl Random Glucose (74-106) mg/dL Calcium (8.5-10.1) mg/dL Phosphorus (2.5-4.9) mg/dL Magnesium (1.5-2.5) mg/dL Total Bilirubin (0.2-1.0) mg/dL AST (15-37) U/L ALT (12-78) U/L Alkaline Phosphatase (45-117) U/L Total Protein (6.4-8.2) g/dL Albumin (3.4-5.0) g/dL Vitamin B12 (193-986) pg/mL Folate (3.1-17.5) ng/mL TSH (0.358-3.740) uIU/mL Urine Color Colorless (Yellw/Straw) Urine Clarity Clear (Clear) Urine pH 7.0 (5.0-8.5) Ur Specific [place] 1.000 L (1.002-1.035) Urine Protein Negative (Neg-Trace) mg/dL Urine Glucose (UA) Negative (Negative) mg/dL Urine Ketones Negative (Negative) mg/dL Urine Occult Blood Negative (Negative) Urine Nitrate Negative (Negative) Urine Bilirubin Negative (Negative) Urine Urobilinogen Less than 2 (Less than 2) mg/dL Ur Leukocyte Esterase Negative (Negative) Urine WBC Less than 1 (0-5) /hpf Micro UA Comment Culture not ind Ur Microscopic Review Not Reportable Urine Culture Comments Culture not ind Nasal Screen MRSA (PCR) Not detected (Negative) Urine Opiates Screen (Neg) Ur Barbiturates Screen (Neg) Ur Amphetamines Screen (Neg) U Benzodiazepines Scrn (Neg) Urine Cocaine Screen (Neg) U Cannabinoids Screen (Neg) Serum Alcohol (0-5) mg/dL 04/21/18 04/22/18 04/22/18 Range/Units 23:30 03:40 03:40 WBC 2.1 L (4.0-11.0) th/mm3 RBC 5.11 (4.50-5.90) mil/mm3 Hgb 14.1 D (13.0-17.0) gm/dL Hct 41.4 (39.0-51.0) % MCV 81.0 (80.0-100.0) fL MCH 27.6 (27.0-34.0) pg MCHC 34.1 (32.0-36.0) % RDW 15.1 (11.6-17.2) % Plt Count 297 (150-450) th/mm3 MPV 7.6 (7.0-11.0) fL Prelim Diff (Auto) Manual diff required Neut % (Auto) (16.0-70.0) % Lymph % (Auto) (9.0-44.0) % [place] % (Auto) (0.0-8.0) % Eos % (Auto) (0.0-4.0) % Baso % (Auto) (0.0-2.0) % Neut # (Auto) (1.8-7.7) th/mm3 Lymph # (Auto) (1.0-4.8) th/mm3 [place] # (Auto) (0.0-0.9) th/mm3 Eos # (Auto) (0.0-0.4) th/mm3 Baso # (Auto) (0.0-0.2) th/mm3 WBC Differential Manual diff final Seg Neuts % (Manual) 43 (16-70) % Lymphocytes % (Manual) 50 H (9-44) % Monocytes % (Manual) 7 (0-8) % Abs Neuts (Manual) 0.9 L (1.8-7.7) th/mm3 Differential Comment . Platelet Estimate Normal (Normal) Platelet Morphology Normal (Normal) RBC Morphology Normal (Normal) PT 10.3 (9.8-11.6) sec INR 1.0 Ratio APTT 31.7 H (24.3-30.1) sec Sodium 123 L* D (136-145) meq/L Potassium (3.5-5.1) meq/L Chloride (98-107) meq/L Carbon Dioxide (21.0-32.0) meq/L Anion Gap (5-15) meq/L BUN (7-18) mg/dL Creatinine (0.60-1.30) mg/dL Estimated GFR (>89) mL/min POC Glucose (68-110) mg/dl Random Glucose (74-106) mg/dL Calcium (8.5-10.1) mg/dL Phosphorus (2.5-4.9) mg/dL Magnesium (1.5-2.5) mg/dL Total Bilirubin (0.2-1.0) mg/dL AST (15-37) U/L ALT (12-78) U/L Alkaline Phosphatase (45-117) U/L Total Protein (6.4-8.2) g/dL Albumin (3.4-5.0) g/dL Vitamin B12 (193-986) pg/mL Folate (3.1-17.5) ng/mL TSH (0.358-3.740) uIU/mL Urine Color (Yellw/Straw) Urine Clarity (Clear) Urine pH (5.0-8.5) Ur Specific [place] (1.002-1.035) Urine Protein (Neg-Trace) mg/dL Urine Glucose (UA) (Negative) mg/dL Urine Ketones (Negative) mg/dL Urine Occult Blood (Negative) Urine Nitrate (Negative) Urine Bilirubin (Negative) Urine Urobilinogen (Less than 2) mg/dL Ur Leukocyte Esterase (Negative) Urine WBC (0-5) /hpf Micro UA Comment Ur Microscopic Review Urine Culture Comments Nasal Screen MRSA (PCR) (Negative) Urine Opiates Screen (Neg) Ur Barbiturates Screen (Neg) Ur Amphetamines Screen (Neg) U Benzodiazepines Scrn (Neg) Urine Cocaine Screen (Neg) U Cannabinoids Screen (Neg) Serum Alcohol (0-5) mg/dL 04/22/18 04/22/18 04/22/18 Range/Units 03:40 08:33 11:48 WBC (4.0-11.0) th/mm3 RBC (4.50-5.90) mil/mm3 Hgb (13.0-17.0) gm/dL Hct (39.0-51.0) % MCV (80.0-100.0) fL MCH (27.0-34.0) pg MCHC (32.0-36.0) % RDW (11.6-17.2) % Plt Count (150-450) th/mm3 MPV (7.0-11.0) fL Prelim Diff (Auto) Neut % (Auto) (16.0-70.0) % Lymph % (Auto) (9.0-44.0) % [place] % (Auto) (0.0-8.0) % Eos % (Auto) (0.0-4.0) % Baso % (Auto) (0.0-2.0) % Neut # (Auto) (1.8-7.7) th/mm3 Lymph # (Auto) (1.0-4.8) th/mm3 [place] # (Auto) (0.0-0.9) th/mm3 Eos # (Auto) (0.0-0.4) th/mm3 Baso # (Auto) (0.0-0.2) th/mm3 WBC Differential Seg Neuts % (Manual) (16-70) % Lymphocytes % (Manual) (9-44) % Monocytes % (Manual) (0-8) % Abs Neuts (Manual) (1.8-7.7) th/mm3 Differential Comment Platelet Estimate (Normal) Platelet Morphology (Normal) RBC Morphology (Normal) PT (9.8-11.6) sec INR Ratio APTT (24.3-30.1) sec Sodium 131 L 128 L 129 L (136-145) meq/L Potassium 3.8 (3.5-5.1) meq/L Chloride 98 D (98-107) meq/L Carbon Dioxide 24.4 (21.0-32.0) meq/L Anion Gap 9 (5-15) meq/L BUN 2 L (7-18) mg/dL Creatinine 0.59 L (0.60-1.30) mg/dL Estimated GFR Greater than 89 (>89) mL/min POC Glucose (68-110) mg/dl Random Glucose 107 H (74-106) mg/dL Calcium 8.7 (8.5-10.1) mg/dL Phosphorus 3.3 (2.5-4.9) mg/dL Magnesium 2.0 (1.5-2.5) mg/dL Total Bilirubin 0.3 (0.2-1.0) mg/dL AST 22 (15-37) U/L ALT 26 (12-78) U/L Alkaline Phosphatase 105 (45-117) U/L Total Protein 7.5 (6.4-8.2) g/dL Albumin 4.0 (3.4-5.0) g/dL Vitamin B12 (193-986) pg/mL Folate (3.1-17.5) ng/mL TSH (0.358-3.740) uIU/mL Urine Color (Yellw/Straw) Urine Clarity (Clear) Urine pH (5.0-8.5) Ur Specific [place] (1.002-1.035) Urine Protein (Neg-Trace) mg/dL Urine Glucose (UA) (Negative) mg/dL Urine Ketones (Negative) mg/dL Urine Occult Blood (Negative) Urine Nitrate (Negative) Urine Bilirubin (Negative) Urine Urobilinogen (Less than 2) mg/dL Ur Leukocyte Esterase (Negative) Urine WBC (0-5) /hpf Micro UA Comment Ur Microscopic Review Urine Culture Comments Nasal Screen MRSA (PCR) (Negative) Urine Opiates Screen (Neg) Ur Barbiturates Screen (Neg) Ur Amphetamines Screen (Neg) U Benzodiazepines Scrn (Neg) Urine Cocaine Screen (Neg) U Cannabinoids Screen (Neg) Serum Alcohol (0-5) mg/dL 04/22/18 04/22/18 04/23/18 Range/Units 14:20 16:26 05:18 WBC (4.0-11.0) th/mm3 RBC (4.50-5.90) mil/mm3 Hgb (13.0-17.0) gm/dL Hct (39.0-51.0) % MCV (80.0-100.0) fL MCH (27.0-34.0) pg MCHC (32.0-36.0) % RDW (11.6-17.2) % Plt Count (150-450) th/mm3 MPV (7.0-11.0) fL Prelim Diff (Auto) Neut % (Auto) (16.0-70.0) % Lymph % (Auto) (9.0-44.0) % [place] % (Auto) (0.0-8.0) % Eos % (Auto) (0.0-4.0) % Baso % (Auto) (0.0-2.0) % Neut # (Auto) (1.8-7.7) th/mm3 Lymph # (Auto) (1.0-4.8) th/mm3 [place] # (Auto) (0.0-0.9) th/mm3 Eos # (Auto) (0.0-0.4) th/mm3 Baso # (Auto) (0.0-0.2) th/mm3 WBC Differential Seg Neuts % (Manual) (16-70) % Lymphocytes % (Manual) (9-44) % Monocytes % (Manual) (0-8) % Abs Neuts (Manual) (1.8-7.7) th/mm3 Differential Comment Platelet Estimate (Normal) Platelet Morphology (Normal) RBC Morphology (Normal) PT (9.8-11.6) sec INR Ratio APTT (24.3-30.1) sec Sodium 131 L 130 L 130 L (136-145) meq/L Potassium (3.5-5.1) meq/L Chloride (98-107) meq/L Carbon Dioxide (21.0-32.0) meq/L Anion Gap (5-15) meq/L BUN (7-18) mg/dL Creatinine (0.60-1.30) mg/dL Estimated GFR (>89) mL/min POC Glucose (68-110) mg/dl Random Glucose (74-106) mg/dL Calcium (8.5-10.1) mg/dL Phosphorus (2.5-4.9) mg/dL Magnesium (1.5-2.5) mg/dL Total Bilirubin (0.2-1.0) mg/dL AST (15-37) U/L ALT (12-78) U/L Alkaline Phosphatase (45-117) U/L Total Protein (6.4-8.2) g/dL Albumin (3.4-5.0) g/dL Vitamin B12 295 (193-986) pg/mL Folate 12.9 (3.1-17.5) ng/mL TSH (0.358-3.740) uIU/mL Urine Color (Yellw/Straw) Urine Clarity (Clear) Urine pH (5.0-8.5) Ur Specific [place] (1.002-1.035) Urine Protein (Neg-Trace) mg/dL Urine Glucose (UA) (Negative) mg/dL Urine Ketones (Negative) mg/dL Urine Occult Blood (Negative) Urine Nitrate (Negative) Urine Bilirubin (Negative) Urine Urobilinogen (Less than 2) mg/dL Ur Leukocyte Esterase (Negative) Urine WBC (0-5) /hpf Micro UA Comment Ur Microscopic Review Urine Culture Comments Nasal Screen MRSA (PCR) (Negative) Urine Opiates Screen (Neg) Ur Barbiturates Screen (Neg) Ur Amphetamines Screen (Neg) U Benzodiazepines Scrn (Neg) Urine Cocaine Screen (Neg) U Cannabinoids Screen (Neg) Serum Alcohol (0-5) mg/dL 04/23/18 04/23/18 Range/Units 10:14 15:00 WBC 2.9 L (4.0-11.0) th/mm3 RBC 4.46 L (4.50-5.90) mil/mm3 Hgb 12.1 L D (13.0-17.0) gm/dL Hct 35.6 L (39.0-51.0) % MCV 79.9 L (80.0-100.0) fL MCH 27.1 (27.0-34.0) pg MCHC 33.9 (32.0-36.0) % RDW 14.9 (11.6-17.2) % Plt Count 250 (150-450) th/mm3 MPV 7.4 (7.0-11.0) fL Prelim Diff (Auto) Neut % (Auto) 58.7 (16.0-70.0) % Lymph % (Auto) 30.2 (9.0-44.0) % [place] % (Auto) 10.5 H (0.0-8.0) % Eos % (Auto) 0.3 (0.0-4.0) % Baso % (Auto) 0.3 (0.0-2.0) % Neut # (Auto) 1.7 L (1.8-7.7) th/mm3 Lymph # (Auto) 0.9 L (1.0-4.8) th/mm3 [place] # (Auto) 0.3 (0.0-0.9) th/mm3 Eos # (Auto) 0.0 (0.0-0.4) th/mm3 Baso # (Auto) 0.0 (0.0-0.2) th/mm3 WBC Differential . Seg Neuts % (Manual) (16-70) % Lymphocytes % (Manual) (9-44) % Monocytes % (Manual) (0-8) % Abs Neuts (Manual) (1.8-7.7) th/mm3 Differential Comment Auto diff final Platelet Estimate (Normal) Platelet Morphology (Normal) RBC Morphology (Normal) PT (9.8-11.6) sec INR Ratio APTT (24.3-30.1) sec Sodium 129 L (136-145) meq/L Potassium 4.0 (3.5-5.1) meq/L Chloride 97 L (98-107) meq/L Carbon Dioxide 24.3 (21.0-32.0) meq/L Anion Gap 8 (5-15) meq/L BUN 3 L (7-18) mg/dL Creatinine 0.77 (0.60-1.30) mg/dL Estimated GFR Greater than 89 (>89) mL/min POC Glucose (68-110) mg/dl Random Glucose 134 H (74-106) mg/dL Calcium 8.9 (8.5-10.1) mg/dL Phosphorus (2.5-4.9) mg/dL Magnesium (1.5-2.5) mg/dL Total Bilirubin (0.2-1.0) mg/dL AST (15-37) U/L ALT (12-78) U/L Alkaline Phosphatase (45-117) U/L Total Protein (6.4-8.2) g/dL Albumin (3.4-5.0) g/dL Vitamin B12 (193-986) pg/mL Folate (3.1-17.5) ng/mL TSH (0.358-3.740) uIU/mL Urine Color (Yellw/Straw) Urine Clarity (Clear) Urine pH (5.0-8.5) Ur Specific [place] (1.002-1.035) Urine Protein (Neg-Trace) mg/dL Urine Glucose (UA) (Negative) mg/dL Urine Ketones (Negative) mg/dL Urine Occult Blood (Negative) Urine Nitrate (Negative) Urine Bilirubin (Negative) Urine Urobilinogen (Less than 2) mg/dL Ur Leukocyte Esterase (Negative) Urine WBC (0-5) /hpf Micro UA Comment Ur Microscopic Review Urine Culture Comments Nasal Screen MRSA (PCR) (Negative) Urine Opiates Screen (Neg) Ur Barbiturates Screen (Neg) Ur Amphetamines Screen (Neg) U Benzodiazepines Scrn (Neg) Urine Cocaine Screen (Neg) U Cannabinoids Screen (Neg) Serum Alcohol (0-5) mg/dL Imaging Data Radiologist's impression: Chest X-Ray 04/22/18 00:00 CONCLUSION: 1. No acute cardiopulmonary disease. Discharge Plan Discharge Disposition Patient Disposition: 30 Still Patient Physicians Team ED Provider: Sierra Miles ED Midlevel Provider: Nina Epps Primary Care Provider: UNKNOWN, Attending Provider: Tanvir Rebolledo Other Providers: Osmani Ryan ; Kvng Hurtado Status ED Status: Left Department Discharge Information Discharge Date/Time: 04/21/18 22:17
[2018-04-21] MEDS ORDERED: Bisacodyl 10 MG Supp RECTAL PRN (21:21)
[2018-04-21] MEDS ORDERED: Acetaminophen 325 MG Tablet PO PRN (21:21)
[2018-04-21] MEDS ORDERED: Sod Chloride 0.9% Inj 1,000 ML IV.CONT SCH (21:30)
--- NOTE | 2018-04-21 21:42 | P.HPCC ---
History of Present Illness Primary Care Physician: UNKNOWN History of Present Illness: 37-year-old male presents under Perez act for psychiatric evaluation. Per the [employer] act report the patient did not feel safe. Patient states that his apartment is a sanctuary. He states that he is afraid of people, crowds, not every day but most days. He states he becomes very anxious while he is in public. He felt that because he was feeling scared in his apartment he called 911 to be evaluated. Patient states that he is not on any blood pressure medicine, his blood pressure goes up when he is around people. Past medical history significant for schizophrenia, OCD. Patient denies any suicidal homicidal ideations. He denies any pain, he does report that he hears voices sometimes. Patient reports compliance with his medications. In the emergency department his sodium was found to be 110 and he has been admitted to ICU with severe hyponatremia. The patient admits excessive drinking of water, and some Gatorade. Inpatient Certification: I certify that the inpatient services were ordered in accordance with Medicare regulations governing the order. This includes certification that hospital inpatient services are reasonable and necessary and in the case of services not specified as inpatient-only under 42 CFR 419.22(n), that they are appropriately provided as inpatient services in accordance to with the 2-midnight benchmark under 43 CFR 412.3(e) Estimated Total Length of Stay (Days): 5 Plans for Post Hospital Care: Not yet determined Review of Systems All other systems reviewed negative except as stated in HPI PMFSH - History History Provided By: Patient - Medical History Medical History: Medical History (Last Reviewed 04/21/18 @ 20:45 by Sierra Miles MD) Asthma Bipolar 1 disorder Hypertension Obsessive compulsive disorder Schizoaffective disorder Surgical history unknown - Tobacco History Tobacco Use In Past 30 Days: Yes Smoking Status: Current every day smoker Tobacco Type: Cigarettes - Alcohol History How Often Do You Have a Drink Containing Alcohol: Never - Substance Use History Substance History: No History of Abuse - Travel History Recent Travel in the [place] Within the Last 8 Weeks: No Recent Travel Out of the Country Within the Last 8 Weeks: No - Immunization History Tetanus Immunization: Unsure Medications and Allergies Active Medications: Active Medications Acetaminophen (Tylenol) 650 mg PO Q6H PRN PRN Reason: PAIN 1-10 AND/OR FEVER >101F Al Hydroxide/Mg Hydroxide (Milk Of Magnesia Liq) 30 ml PO Q12H PRN PRN Reason: Mild Constipation Albuterol (Duoneb Neb (Prn)) 1 ampul NEB Q2HR NEB PRN PRN Reason: WHEEZING Bisacodyl (Dulcolax Supp) 10 mg RECTAL DAILY PRN PRN Reason: SEVERE CONSITIPATION Chlorhexidine Gluconate (Chlorhexidine 2% Cloth) 3 pack TOPICAL DAILY@0400 [facility] Stop: 04/27/18 03:59 Chlorhexidine Gluconate (Chlorhexidine 2% Cloth) 3 pack TOPICAL DAILY@0400 PRN PRN Reason: Extra cloth needed Stop: 04/27/18 03:59 Enoxaparin Sodium (Lovenox Inj) 40 mg SQ Q24H [facility] Sodium Chloride (Sodium Chloride 3% Inj) 500 mls @ 20 mls/hr IV.SIG UNSCH PRN PRN Reason: ICP Management Last Admin: 04/21/18 20:47 Dose: 20 mls/hr Sodium Chloride (Ns Inj) 1,000 mls @ 154 mls/hr IV.CONT .Q6H30M [facility] Lactulose (Lactulose Liq) 30 ml PO DAILY PRN PRN Reason: SEVERE CONSITIPATION Ondansetron HCl (Zofran Inj) 4 mg IV.PUSH Q6H PRN PRN Reason: NAUSEA OR VOMITING Senna/Docusate Sodium (Zaira-Colace) 1 tab PO BID [facility] Sennosides (Senokot) 17.2 mg PO Q12H PRN PRN Reason: Moderate Constipation Sodium Chloride (Ns Flush) 2 ml IV.FLUSH BID [facility] Sodium Chloride (Ns Flush) 2 ml IV.FLUSH PRN PRN PRN Reason: FLUSH AFTER USING IV ACCESS Allergies Allergy/AdvReac Type Severity Reaction Status Date / Time cat dander Allergy Edema, Verified 04/21/18 18:01 Localized chlorpromazine Allergy Fever Verified 04/21/18 18:00 [From Thorazine] haloperidol [From Haldol] Allergy Shakiness Verified 04/21/18 18:00 Results - Labs CBC & Chem 7: 04/22/18 03:40 04/21/18 23:30 Labs: Short CBC 04/21/18 Range/Units 19:20 WBC 3.4 L (4.0-11.0) th/mm3 Hgb 12.1 L (13.0-17.0) gm/dL Hct 35.1 L (39.0-51.0) % Plt Count 246 (150-450) th/mm3 BMP 04/21/18 19:20 Sodium 110 L* Potassium 4.1 Chloride 77 L Carbon Dioxide 21.7 BUN 1 L Creatinine 0.63 Calcium 8.2 L Liver Function 04/21/18 Range/Units 19:20 Total Bilirubin 0.4 (0.2-1.0) mg/dL AST 41 H (15-37) U/L ALT 28 (12-78) U/L Alkaline Phosphatase 94 (45-117) U/L Albumin 3.6 (3.4-5.0) g/dL Urine 04/21/18 Range/Units 19:20 Urine Color Colorless (Yellw/Straw) Urine Clarity Clear (Clear) Urine pH 7.0 (5.0-8.5) Ur Specific [place] 1.000 L (1.002-1.035) Urine Protein Negative (Neg-Trace) mg/dL Urine Glucose (UA) Negative (Negative) mg/dL Exam Vital signs: Vital Signs 04/21/18 18:01 04/21/18 20:00 04/21/18 20:30 Temperature 98.5 F Pulse Rate 99 H 79 83 Respiratory Rate 16 16 18 Blood Pressure 203/127 H 198/118 H 205/114 H Pulse Oximetry 99 100 100 04/21/18 21:00 04/21/18 21:30 Temperature Pulse Rate 68 76 Respiratory Rate 18 18 Blood Pressure 174/106 H 180/118 H Pulse Oximetry 100 100 - Constitutional mild distress - Routine HEENT Exam Head: Present: normocephalic, atraumatic Eye: Present: PERRL ENT: Present: mucous membranes moist - Routine Neck Exam Present: supple, full ROM. Absent: JVD, carotid bruit - Routine Respiratory Exam Absent: accessory muscle use, rhonchi, stridor, wheezes, crackles - Routine Cardiovascular Exam Present: RRR, S1, S2 - Routine Abdominal Exam Present: soft, normoactive bowel sounds. Absent: tenderness, distended - Routine Extremities Exam Absent: cyanosis, clubbing, edema - Routine Skin Exam Present: intact. Absent: cyanosis, erythema - Routine Neurological Exam Present: alert, altered mental status Septic Shock Reassessment Septic shock perfusion: reassessment completed Caprini VTE Risk Assessment Caprini VTE Risk Assessment: Moderate/High Risk (score >= 2) Caprini Risk Assessment Model: Point Value = 1 Point Value = 2 Point Value = 3 Point Value = 5 Age 41-60 Minor surgery BMI > 25 kg/m2 Swollen legs Varicose veins or History of unexplained or recurrent spontaneous Oral contraceptives or hormone replacement Sepsis (< 1 month) Serious lung disease, including pneumonia (< 1 month) Abnormal pulmonary function Acute myocardial infarction Congestive heart failure (< 1 month) History of inflammatory bowel disease Medical patient at bed rest Age 61-74 Arthroscopic surgery Major open surgery (> 45 min) Laparoscopic surgery (> 45 min) Malignancy Confined to bed (> 72 hours) Immobilizing plaster cast Central venous access Age >= 75 History of VTE Family history of VTE Factor V Leiden Prothrombin [id number] Lupus anticoagulant Anticardiolipin antibodies Elevated serum homocysteine Heparin-induced thrombocytopenia Other congenital or acquired thrombophilia Stroke (< 1 month) Elective arthroplasty Hip, pelvis, or leg fracture Acute spinal cord injury (< 1 month) Prophylaxis Regimen: Total Risk Factor Score Risk Level Prophylaxis Regimen 0-1 Low Early ambulation 2 Moderate Order ONE of the following: *Sequential Compression Device (SCD) *Heparin 5000 units SQ BID 3-4 Higher Order ONE of the following medications: *Heparin 5000 units SQ TID *Enoxaparin/Lovenox 40 mg SQ daily (WT < 150 kg, CrCl > 30 mL/min) *Enoxaparin/Lovenox 30 mg SQ daily (WT < 150 kg, CrCl > 10-29 mL/min) *Enoxaparin/Lovenox 30 mg SQ BID (WT < 150 kg, CrCl > 30 mL/min) AND/OR *Sequential Compression Device (SCD) 5 or more Highest Order ONE of the following medications: *Heparin 5000 units SQ TID (Preferred with Epidurals) *Enoxaparin/Lovenox 40 mg SQ daily (WT < 150 kg, CrCl > 30 mL/min) *Enoxaparin/Lovenox 30 mg SQ daily (WT < 150 kg, CrCl > 10-29 mL/min) *Enoxaparin/Lovenox 30 mg SQ BID (WT < 150 kg, CrCl > 30 mL/min) AND *Sequential Compression Device (SCD) Assessment and Plan - Assessment and Plan Plan: Hyponatremia -Unclear what psych medications patient taking -Low urine osmolarity -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
[2018-04-21] MEDS: Enoxaparin Inj 40 MG/0.4 ML Syringe SQ SCH (22:32)
[2018-04-22] MEDS: Dextrose 5% in Water Inj 1,000 ML IV.CONT SCH ×3 (00:48→20:29)
[2018-04-22] MEDS ORDERED: Magnesium Oxide 400 MG Tablet PO PRN (01:13)
[2018-04-22] MEDS ORDERED: Potassium Phosphate Inj 30 MMOL in Sodium Chlor 0.9% Inj 250 ML IV.SIG PRN (01:13)
[2018-04-22] MEDS ORDERED: Potassium Chlor 40 mEq Premix 40 MEQ/100 ML PIGGYBACK IV.SIG PRN ×2 (01:13)
[2018-04-22] MEDS ORDERED: Sodium Phosphate Inj 30 MMOL in Sodium Chlor 0.9% Inj 250 ML IV.SIG PRN (01:13)
[2018-04-22] MEDS ORDERED: Magnesium Sulfate Inj 2 GM in Sodium Chlor 0.9% Inj 96 ML IV.SIG PRN (01:13)
[2018-04-22] MEDS ORDERED: Magnesium Sulfate Inj 4 GM in Sodium Chlor 0.9% Inj 92 ML IV.SIG PRN (01:13)
[2018-04-22] MEDS ORDERED: Potassium Chloride 25 MEQ Effervescent Tablet PO PRN (01:13)
[2018-04-22] MEDS ORDERED: Potassium Chlor 20 mEq Premix 20 MEQ/100 ML PIGGYBACK IV.SIG PRN ×2 (01:13)
[2018-04-22] MEDS ORDERED: Potassium Phosphate 500 MG Soluble Tablet PO PRN ×2 (01:13)
[2018-04-22] MEDS ORDERED: Chlorhexidine Gluconate 2% 1 Pack (2 Cloths) TOPICAL PRN (04:00)
[2018-04-22 04:21] LABS: Hematocrit 41.4 % (39.0-51.0); Hemoglobin 14.1 gm/dL (13.0-17.0); Mean Corpuscular HGB Conc 34.1 % (32.0-36.0); Mean Corpuscular Hemoglobin 27.6 pg (27.0-34.0); Mean Platelet Volume 7.6 fL (7.0-11.0); Platelet Count 297 th/mm3 (150-450); Red Blood Count 5.11 mil/mm3 (4.50-5.90); Red Cell Distribution Width 15.1 % (11.6-17.2); White Blood Count 2.1 th/mm3 (4.0-11.0)
[2018-04-22 04:32] LABS: Activated Partial Thrombo Time 31.7 sec (24.3-30.1); Prothrombin Time 10.3 sec (9.8-11.6)
[2018-04-22 04:49] LABS: Alanine Aminotransferase 26 U/L (12-78); Alkaline Phosphatase 105 U/L (45-117); Anion Gap 9 meq/L (5-15); Aspartate Aminotransferase 22 U/L (15-37); Blood Urea Nitrogen 2 mg/dL (7-18); Calcium 8.7 mg/dL (8.5-10.1); Carbon Dioxide 24.4 meq/L (21.0-32.0); Chloride 98 meq/L (98-107); Glomerular Filtration Rate Greater Than 89 mL/min (>89); Glucose,Random 107 mg/dL (74-106); Phosphorus 3.3 mg/dL (2.5-4.9); Potassium 3.8 meq/L (3.5-5.1); Sodium 131 meq/L (136-145); Total Protein 7.5 g/dL (6.4-8.2)
[2018-04-22 05:04] LABS: Lymphocytes 50 % (9-44); Monocytes 7 % (0-8)
[2018-04-22 05:05] LABS: Platelet Estimate Normal (Normal); Platelet Morphology Normal (Normal); RBC Morphology Normal (Normal)
[2018-04-22] MEDS: ALPRAZolam 0.5 MG Tablet PO PRN ×2 (05:27→15:50)
[2018-04-22] MEDS: Labetalol HCl Inj 100 MG/20 ML Vial IV.PUSH PRN ×3 (05:27→16:05)
[2018-04-22] MEDS: Chlorhexidine Gluconate 2% 1 Pack (2 Cloths) TOPICAL SCH (05:32)
[2018-04-22] MEDS ORDERED: clonazePAM 0.5 MG Tablet PO SCH (10:00)
--- NOTE | 2018-04-22 11:03 | P.PNCC ---
Subjective Subjective Remarks/Hospital Course: 04/21: 37-year-old male presents under Perez act for psychiatric evaluation. Per the Perez act report the patient did not feel safe. Patient states that his apartment is a sanctuary. He states that he is afraid of people, crowds, not every day but most days. He states he becomes very anxious while he is in public. He felt that because he was feeling scared in his apartment he called 911 to be evaluated. Patient states that he is not on any blood pressure medicine, his blood pressure goes up when he is around people. Past medical history significant for schizophrenia, OCD. Patient denies any suicidal homicidal ideations. He denies any pain, he does report that he hears voices sometimes. Patient reports compliance with his medications. In the emergency department his sodium was found to be 110 and he has been admitted to ICU with severe hyponatremia. The patient admits excessive drinking of water, and some Gatorade. 04/22: Resting comfortably. Sodium 133 this morning. Patient switched to D5 water earlier. Psychiatric consult pending. Awake alert oriented x3 moving all 4 extremities. Objective Vital Signs / I&O: Vital Signs 04/21/18 18:01 04/21/18 20:00 04/21/18 20:30 Temperature 98.5 F Pulse Rate 99 H 79 83 Respiratory Rate 16 16 18 Blood Pressure 203/127 H 198/118 H 205/114 H Pulse Oximetry 99 100 100 04/21/18 21:00 04/21/18 21:30 04/21/18 23:00 Temperature 98.4 F Pulse Rate 68 76 74 Respiratory Rate 18 18 15 Blood Pressure 174/106 H 180/118 H 158/101 H Pulse Oximetry 100 100 100 04/22/18 00:00 04/22/18 01:00 04/22/18 02:00 Temperature 98.4 F 98 F 98 F Pulse Rate 74 68 71 Respiratory Rate 17 18 20 Blood Pressure 155/99 H 171/98 H 146/106 H Pulse Oximetry 100 100 100 04/22/18 03:00 04/22/18 04:00 04/22/18 05:00 Temperature 98.1 F 98.3 F 98.1 F Pulse Rate 73 75 70 Respiratory Rate 17 18 16 Blood Pressure 159/101 H 172/111 H 167/110 H Pulse Oximetry 100 100 100 04/22/18 06:00 04/22/18 07:00 04/22/18 08:00 Temperature 98.1 F 98.1 F 98.1 F Pulse Rate 73 75 69 Respiratory Rate 18 20 16 Blood Pressure 162/117 H 159/109 H 193/151 H Pulse Oximetry 100 100 100 04/22/18 09:00 Temperature 98.1 F Pulse Rate 76 Respiratory Rate 20 Blood Pressure 224/167 H Pulse Oximetry 98 Intake & Output 04/21/18 04/22/18 04/22/18 18:59 06:59 18:59 Intake Total 3214 / 3214 Output Total 09710 / 28197 Balance -8286 / -8286 Weight 61 kg Intake: IV 214 / 214 NS Inj 1,000 ML @ 154 mls/hr IV 154 / 154 .CONT .Q6H30M [facility] Rx#:[id number] Sodium Chloride 3% Inj 500 ML @ 60 / 60 20 mls/hr IV.SIG UNSCH PRN Rx# :[id number] Oral 3000 / 3000 Output: Urine 51452 / 35092 Other: Weight On Admission 62.5 kg Result Diagrams: 04/22/18 03:40 04/22/18 08:33 Objective Remarks: HEENT/Neuro: No pallor or icterus, tongue moist, [place], Awake alert oriented 3 , nonfocal grossly, moving all 4 extremities Neck: No JVD Chest/pulmonary: CTA bilaterally Cardiovascular: S1-S2 regular no gallop or murmur GI/abdomen: Soft, nontender, bowel sounds present Extremities: Warm bilaterally, no edema Assessment and Plan - Assessment and Plan Plan: Hyponatremia -Resume home psych meds -Low urine osmolarity -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 Richardson who will be evaluating patient for psych consult.
[2018-04-22] MEDS: clonazePAM 0.5 MG Tablet PO SCH (12:32)
[2018-04-22] MEDS: lamoTRIgine 100 MG Tablet PO SCH (12:32)
[2018-04-22] MEDS: Senna/Docusate Sodium 8.6/50 MG Tablet PO SCH ×2 (12:32→20:21)
--- NOTE | 2018-04-22 14:03 | P.CON ---
History of Present Illness Service: Hematology. Consult date: 04/22/18 Requesting Physician: Igor Wadsworth Reason for Consult: Neutropenia. Primary Care Provider: UNKNOWN Chief Complaint: Anxiety. History of Present Illness: Mr. Mcmillan is a 37-year-old male with multiple psychiatric issues and diagnoses including anxiety, OCD, schizoaffective disorder. He smokes about 2 packs of cigarettes daily and also has a history of psychogenic polydipsia. He presented to the hospital via EMS, he called EMS to come get him from his apartment because he felt very anxious and unsafe at home. Upon presentation patient was found to have a sodium level of 110, he was initiated on hypertonic saline. Urine sodium and urine osmolarity studies are not available for review (I am not certain if these were ordered before therapeutic interventions were implemented). The etiology of the hyponatremia is not known but psychogenic polydipsia suspected. The patient reports drinking about 3 gallons of water every day. Hematology service is been asked to see him for evaluation and workup of moderate neutropenia, his absolute neutrophil count was noted to be 900. He has no evidence of anemia or thrombocytopenia. He is on multiple psychiatric medications including atypical antipsychotics; his medications include Invega, zyprexa, lamictal, clonazepam. He is also on omeprazole and lisinopril. The patient denies having issues with recurrent infections specifically sinusitis, pneumonia, urinary tract infections or skin infections. Blood work from December 2017 indicates normal CBC, no additional blood work is available for review. It is not clear whether he has had issues with neutropenia or leukopenia in the past. Review of Systems Constitutional: Denies anorexia, Denies fatigue, Denies fever(s), Denies headache(s), Denies lack of energy, Denies malaise Eyes: Denies change in vision, Denies double vision Ears, Nose, Mouth, and Throat: Denies change in voice, Denies nasal congestion, Denies sore throat Cardiovascular: Denies chest pain, Denies excessive sweating, Denies fainting, Denies fast heart rate Respiratory: Denies cough Gastrointestinal: Denies abdominal pain, Denies bloating, Denies incontinent of stools, Denies loose stools, Denies vomiting Genitourinary: Denies blood in urine Musculoskeletal: Denies abnormal walking, Denies back pain, Denies decreased muscle mass, Denies joint pain Skin/Breast: Reports rash (On the face.), Denies acne Neurologic: Denies confusion, Denies dizziness, Denies fainting, Denies frequent falls, Denies headache(s), Denies lack of coordination, Denies localized weakness, Denies tingling, Denies tingling/numbness/burning sensations , Denies tremor(s), Denies unsteadiness, Denies weakness Psychiatric: Reports anxiety, Denies thoughts of hurting/killing others, Denies thoughts of hurting/killing yourself Endocrine: Denies cold intolerance Hematologic/Lymphatic: Denies easy bleeding Allergic/Immunologic: Denies GI upset with certain foods PMFSH - History History Provided By: Patient - Medical History Medical History: Medical History (Last Updated 04/22/18 @ 13:55 by Osmani Ryan MD) Asthma Bipolar 1 disorder Hypertension Obsessive compulsive disorder Psychogenic polydipsia Schizoaffective disorder Surgical history unknown - Surgical History Surgical History: Surgical History (Last Updated 04/22/18 @ 13:55 by Osmani Ryan MD) No history of previous surgery - Social History I have reviewed the patient's Social History: Yes - Tobacco History Tobacco Use In Past 30 Days: Yes Smoking Status: Current every day smoker Tobacco Type: Cigarettes Packs Per Day: 2 Cigarettes Per Day: 40 Years Smoked: 20 - Alcohol History How Often Do You Have a Drink Containing Alcohol: Never - Substance Use History Substance History: No History of Abuse, Past History ("Tried a little bit of everything ".) - Travel History History of Recent Travel: No Recent Travel in the [place] Within the Last 8 Weeks: No Recent Travel Out of the Country Within the Last 8 Weeks: No - Immunization History Tetanus Immunization: Unsure Medications and Allergies Active Medications: Active Medications Acetaminophen (Tylenol) 650 mg PO Q6H PRN PRN Reason: PAIN 1-10 AND/OR FEVER >101F Al Hydroxide/Mg Hydroxide (Milk Of Magnesia Liq) 30 ml PO Q12H PRN PRN Reason: Mild Constipation Albuterol (Duoneb Neb (Prn)) 1 ampul NEB Q2HR NEB PRN PRN Reason: WHEEZING Last Admin: 04/22/18 01:53 Dose: 1 ampul Alprazolam (Xanax) 0.5 mg PO Q4HR PRN PRN Reason: ANXIETY Last Admin: 04/22/18 05:27 Dose: 0.5 mg Bisacodyl (Dulcolax Supp) 10 mg RECTAL DAILY PRN PRN Reason: SEVERE CONSITIPATION Chlorhexidine Gluconate (Chlorhexidine 2% Cloth) 3 pack TOPICAL DAILY@0400 [facility] Stop: 04/27/18 03:59 Last Admin: 04/22/18 05:32 Dose: 3 pack Chlorhexidine Gluconate (Chlorhexidine 2% Cloth) 3 pack TOPICAL DAILY@0400 PRN PRN Reason: Extra cloth needed Stop: 04/27/18 03:59 Clonazepam (Klonopin) 1 mg PO HS [facility] Clonazepam (Klonopin) 0.5 mg PO DAILY [facility] Last Admin: 04/22/18 12:32 Dose: 0.5 mg Enoxaparin Sodium (Lovenox Inj) 40 mg SQ Q24H [facility] Last Admin: 04/21/18 22:32 Dose: 40 mg Dextrose (D5w Inj) 1,000 mls @ 50 mls/hr IV.CONT .Q20H [facility] Last Admin: 04/22/18 12:33 Dose: 84 mls/hr Magnesium Sulfate 4 gm/ Sodium (Chloride) 100 mls @ 50 mls/hr IV.SIG UNSCH PRN PRN Reason: For Magnesium 0.9 - 1.1 mg/dL Magnesium Sulfate 2 gm/ Sodium (Chloride) 100 mls @ 50 mls/hr IV.SIG UNSCH PRN PRN Reason: For Magnesium 1.2 - 1.6 mg/dL Potassium Chloride (Kcl 20 Meq Premix Inj) 20 meq in 100 mls @ 50 mls/hr IV.SIG Q2H PRN PRN Reason: For Potassium 3.3 - 3.5 mEq/L Potassium Chloride (Kcl 40 Meq Premix Inj) 40 meq in 100 mls @ 25 mls/hr IV.SIG UNSCH PRN PRN Reason: For Potassium 3.3 - 3.5 mEq/L Potassium Chloride (Kcl 20 Meq Premix Inj) 20 meq in 100 mls @ 50 mls/hr IV.SIG Q2H PRN PRN Reason: For Potassium 2.8 - 3.2 mEq/L Potassium Phosphate 30 mmol/ (Sodium Chloride) 260 mls @ 42 mls/hr IV.SIG UNSCH PRN PRN Reason: SEE LABEL COMMENTS Sodium Phosphate 30 mmol/ (Sodium Chloride) 260 mls @ 42 mls/hr IV.SIG UNSCH PRN PRN Reason: For Phosphorus < 2.5 mg/dL Potassium Chloride (Kcl 40 Meq Premix Inj) 40 meq in 100 mls @ 25 mls/hr IV.SIG Q2H PRN PRN Reason: For Potassium 2.8 - 3.2 mEq/L Labetalol HCl (Trandate Inj) 10 mg IV.PUSH Q4H PRN PRN Reason: SBP>160, DBP>90 Last Admin: 04/22/18 09:45 Dose: 10 mg Lactulose (Lactulose Liq) 30 ml PO DAILY PRN PRN Reason: SEVERE CONSITIPATION Lamotrigine (Lamictal) 150 mg PO DAILY [facility] Last Admin: 04/22/18 12:32 Dose: 150 mg Magnesium Oxide (Mag-Ox) 800 mg PO UNSCH PRN PRN Reason: For Magnesium 1.2 - 1.6 mg/dL Miscellaneous (Pill Splitter) 1 each OTHER UNSCH PRN PRN Reason: SEE LABEL COMMENTS Olanzapine (Zyprexa) 20 mg PO [facility] Ondansetron HCl (Zofran Inj) 4 mg IV.PUSH Q6H PRN PRN Reason: NAUSEA OR VOMITING Paliperidone Palmitate (Invega Er) 9 mg PO DAILY [facility] Last Admin: 04/22/18 12:32 Dose: 9 mg Potassium Bicarb/Potassium Chloride (K-Lyte Cl Eff) 50 meq PO UNSCH PRN PRN Reason: For Potassium 3.3 - 3.5 mEq/L Potassium Phosphate (K-Phos Original) 2,000 mg PO Q4H PRN PRN Reason: Phosphorus Less Than 2.5 mg/dL Potassium Phosphate (K-Phos Original) 2,000 mg PO UNSCH PRN PRN Reason: SEE LABEL COMMENTS Senna/Docusate Sodium (Zaira-Colace) 1 tab PO BID [facility] Last Admin: 04/22/18 12:32 Dose: Not Given Sennosides (Senokot) 17.2 mg PO Q12H PRN PRN Reason: Moderate Constipation Sodium Chloride (Ns Flush) 2 ml IV.FLUSH BID [facility] Last Admin: 04/22/18 12:31 Dose: 2 ml Sodium Chloride (Ns Flush) 2 ml IV.FLUSH PRN PRN PRN Reason: FLUSH AFTER USING IV ACCESS Allergies Allergy/AdvReac Type Severity Reaction Status Date / Time cat dander Allergy Edema, Verified 04/21/18 18:01 Localized chlorpromazine Allergy Fever Verified 04/21/18 18:00 [From Thorazine] haloperidol [From Haldol] Allergy Shakiness Verified 04/21/18 18:00 Home Medications Medication Instructions Recorded Confirmed Type Multi Vitamin 04/22/18 04/22/18 History clonazepam 0.5 mg PO BID 04/22/18 04/22/18 History lamotrigine [Lamictal] 150 mg PO DAILY 04/22/18 04/22/18 History olanzapine [Zyprexa] 20 mg PO HS 04/22/18 04/22/18 History paliperidone [Invega] 9 mg PO DAILY 04/22/18 04/22/18 History Physical Exam Vital signs: Vital Signs 04/21/18 18:01 04/21/18 20:00 04/21/18 20:30 Temperature 98.5 F Pulse Rate 99 H 79 83 Respiratory Rate 16 16 18 Blood Pressure 203/127 H 198/118 H 205/114 H Pulse Oximetry 99 100 100 04/21/18 21:00 04/21/18 21:30 04/21/18 23:00 Temperature 98.4 F Pulse Rate 68 76 74 Respiratory Rate 18 18 15 Blood Pressure 174/106 H 180/118 H 158/101 H Pulse Oximetry 100 100 100 04/22/18 00:00 04/22/18 01:00 04/22/18 02:00 Temperature 98.4 F 98 F 98 F Pulse Rate 74 68 71 Respiratory Rate 17 18 20 Blood Pressure 155/99 H 171/98 H 146/106 H Pulse Oximetry 100 100 100 04/22/18 03:00 04/22/18 04:00 04/22/18 05:00 Temperature 98.1 F 98.3 F 98.1 F Pulse Rate 73 75 70 Respiratory Rate 17 18 16 Blood Pressure 159/101 H 172/111 H 167/110 H Pulse Oximetry 100 100 100 04/22/18 06:00 04/22/18 07:00 04/22/18 08:00 Temperature 98.1 F 98.1 F 98.1 F Pulse Rate 73 75 69 Respiratory Rate 18 20 16 Blood Pressure 162/117 H 159/109 H 193/151 H Pulse Oximetry 100 100 100 04/22/18 09:00 04/22/18 10:00 04/22/18 11:00 Temperature Pulse Rate 76 63 65 Respiratory Rate 20 18 22 Blood Pressure 193/125 H 214/124 H 165/68 H Pulse Oximetry 98 98 98 04/22/18 12:00 04/22/18 13:00 Temperature 98.4 F Pulse Rate 91 H 84 Respiratory Rate 16 18 Blood Pressure 138/73 169/109 H Pulse Oximetry 98 98 Intake & Output 04/21/18 04/22/18 04/22/18 18:59 06:59 18:59 Intake Total 3214 / 3214 1000 / 1000 Output Total 69762 / 69266 Balance -8286 / -8286 1000 / 1000 Weight 61 kg Intake: IV 214 / 214 1000 / 1000 D5W Inj 1,000 ML @ 50 mls/hr IV 1000 / 1000 .CONT .Q20H [facility] Rx#:[id number] NS Inj 1,000 ML @ 154 mls/hr IV 154 / 154 .CONT .Q6H30M [facility] Rx#:[id number] Sodium Chloride 3% Inj 500 ML @ 60 / 60 20 mls/hr IV.SIG UNSCH PRN Rx# :[id number] Oral 3000 / 3000 Output: Urine 36385 / 09500 Other: Weight On Admission 62.5 kg - Constitutional mild distress, thin, disheveled, somnolent Comments: Young man, sitting up in bed, appears to be anxious. - Routine HEENT Exam Head: Present: normocephalic, atraumatic. Absent: cushingoid faces, abrasion Eye: Present: EOMI, PERRL, normal accommodation ENT: Present: mucous membranes moist - Routine Neck Exam Present: supple. Absent: lymphadenopathy - Routine Respiratory Exam Present: rhonchi, wheezes (Over the left upper lobe.). Absent: accessory muscle use, prolonged expiratory phase, respiratory distress, crackles - Routine Cardiovascular Exam Present: RRR, S1, S2. Absent: murmur, gallop, rubs, S3, S4 - Routine Abdominal Exam Present: soft, guarding. Absent: tenderness, distended, rebound, organomegaly, mass, hernia - Routine Extremities Exam Present: pulses intact. Absent: cyanosis, edema, tenderness, joint swelling - Routine Skin Exam Present: intact - Routine Neurological Exam Present: alert, oriented X3, CN II-XII intact, normal speech. Absent: sensory deficit, motor deficit, hemineglect, tremors, asterixis - Detailed Neurological Exam: Coma Scale Eye Opening: Spontaneous Verbal Response: Oriented Motor Response: Obey commands [place] Coma Scale Total: 15 - Routine Psychiatric Exam Present: good insight, anxious. Absent: agitated, paranoid, manic Assessment and Plan - Plan Ms. Mcmillan is a 37-year-old man with a history of schizoaffective disorder, anxiety, depression and OCD. Additionally, he has a history of psychogenic polydipsia and tobaccoism (he has been consuming 2 packs of cigarettes daily since he was a teenager). Presented to the hospital because he was feeling very anxious at home, he is currently Perez acted and in the critical care unit for severe hyponatremia. Presenting sodium level was 110. Is unclear whether he has psychogenic polydipsia or whether his hyponatremia is related to other causes such as SIADH. Hematology service is been asked to see him for moderate neutropenia; ANC earlier today was 900. He has been on multiple antipsychotics and is also on omeprazole which is known to be associated with neutropenia. Peripheral smear was reviewed from blood drawn today; patient did have frequently observed neutrophils; the neutrophils did not appear to have dysplastic or dysmorphic findings. Specifically; the neutrophils had normally segmented nuclei, the neutrophils were adequately granulated as well. Additional nucleated cells were within normal limits; the lymphocytes were mature appearing, the monocytes were also mature appearing and without dysplastic findings. RBCs appear to be within normal limits though there was some element of hypochromasia. Platelets were in adequate numbers and adequate configuration without evidence of platelet clumping. Recommendations: 1. Moderate neutropenia: I requested vitamin B12 and folate level assessment. I doubt there is a primary bone marrow disorder given the normal hemoglobin levels and normal platelet counts. Additionally there were no dysplastic or dysmorphic findings on peripheral smear evaluation. I suspect the neutropenia is likely related to his antipsychotics and possible interactions amongst them. 2. Abnormal respiratory exam on examination; wheezing over the left lung: I have requested a chest x-ray. 3. Hyponatremia: Management per critical care team. 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
[2018-04-22 15:29] LABS: Folate 12.9 ng/mL (3.1-17.5)
--- NOTE | 2018-04-22 15:58 | XR ---
EXAM DATE: 04/22/2018 12:00 AM EDT AGE/SEX: 37 years / Male INDICATIONS: Cough. CLINICAL DATA: This is the patient's initial encounter. Patient reports that signs and symptoms have been present for 1 day and indicates a pain score of 2/10. MEDICAL/SURGICAL HISTORY: Asthma. None. COMPARISON: No prior exams available for comparison. FINDINGS: A single AP view of the chest demonstrates the lungs to be symmetrically aerated without evidence of mass, infiltrate or effusion. The cardiomediastinal contours are unremarkable. Osseous structures a re intact. CONCLUSION: 1. No acute cardiopulmonary disease. Electronically signed by: Dawit Montana MD 04/22/2018 3:57 PM EDT
--- NOTE | 2018-04-22 18:16 | P.CONPSY ---
Provisional Diagnosis Admission Date: April 21, 2018 20:43 Donie I.: Schizophrenia, unspecified Donie III.: hyponatremia History of Present Illness Service: Psychiatry Consult date: 04/22/18 Reason for Consult: Chris Galvan Primary Care Provider: UNKNOWN Chief Complaint: "Im okay" History of Present Illness: Pt is a 37YOWM with a hx of schizophrenia who [place] [facility] [place] he called EMS and reported not feeling well. Pt was noticed to have AMS and placed under a BA due to concerns that he might harm self. In ED he was found to be hyponatremic and admitted to critical care team. Pt is interviewed at bedside and mother is present during interview. Chart reviewed and pt discussed with staff. Pt reports that he felt very anxious and confused and knew that "something wasn't right". He states that he has been compliant with current psychiatric regimen for schizophrenia for many years and he is tolerating it without side effects. He adamantly denies SI/HI or active psychosis. Mother states that pt has been doing very well and he is currently at his baseline. Pt states that since he has been in the hospital receiving treatment, anxiety has resolved and he is feeling better. Mother reports that pt is compliant with treatment and currently sees Dr. Bear for outpatient psychiatry. 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 [facility] - History History Provided By: Patient - Medical History Medical History: Medical History (Last Reviewed 04/22/18 @ 18:13 by Awilda Patten MD) Asthma Bipolar 1 disorder Hypertension Obsessive compulsive disorder Psychogenic polydipsia Schizoaffective disorder Surgical history unknown - Surgical History Surgical History: Surgical History (Last Reviewed 04/22/18 @ 18:13 by Awilda Patten MD) No history of previous surgery - Social History I have reviewed the patient's Social History: Yes - Tobacco History Tobacco Use In Past 30 Days: Yes Smoking Status: Current every day smoker Tobacco Type: Cigarettes Packs Per Day: 2 Cigarettes Per Day: 40 Years Smoked: 20 - Alcohol History How Often Do You Have a Drink Containing Alcohol: Never - Substance Use History Substance History: No History of Abuse, Past History ("Tried a little bit of everything ".) - Travel History History of Recent Travel: No Recent Travel in the [place] Within the Last 8 Weeks: No Recent Travel Out of the Country Within the Last 8 Weeks: No - Immunization History Tetanus Immunization: Unsure Medications and Allergies Active Medications: Active Medications Acetaminophen (Tylenol) 650 mg PO Q6H PRN PRN Reason: PAIN 1-10 AND/OR FEVER >101F Al Hydroxide/Mg Hydroxide (Milk Of Melina Bowens) 30 ml PO Q12H PRN PRN Reason: Mild Constipation Albuterol (Duoneb Neb (Prn)) 1 ampul NEB Q2HR NEB PRN PRN Reason: WHEEZING Last Admin: 04/22/18 01:53 Dose: 1 ampul Alprazolam (Xanax) 0.5 mg PO Q4HR PRN PRN Reason: ANXIETY Last Admin: 04/22/18 15:50 Dose: 0.5 mg Bisacodyl (Dulcolax Supp) 10 mg RECTAL DAILY PRN PRN Reason: SEVERE CONSITIPATION Chlorhexidine Gluconate (Chlorhexidine 2% Cloth) 3 pack TOPICAL DAILY@0400 [facility] Stop: 04/27/18 03:59 Last Admin: 04/22/18 05:32 Dose: 3 pack Chlorhexidine Gluconate (Chlorhexidine 2% Cloth) 3 pack TOPICAL DAILY@0400 PRN PRN Reason: Extra cloth needed Stop: 04/27/18 03:59 Clonazepam (Klonopin) 1 mg PO HS [facility] Clonazepam (Klonopin) 0.5 mg PO DAILY [facility] Last Admin: 04/22/18 12:32 Dose: 0.5 mg Clonidine HCl (Catapres) 0.1 mg PO Q6H PRN PRN Reason: SYS BP GREATER THAN 160 [facility] Last Admin: 04/22/18 15:50 Dose: 0.1 mg Enoxaparin Sodium (Lovenox Inj) 40 mg SQ Q24H [facility] Last Admin: 04/21/18 22:32 Dose: 40 mg Dextrose (D5w Inj) 1,000 mls @ 50 mls/hr IV.CONT .Q20H [facility] Last Admin: 04/22/18 12:33 Dose: 84 mls/hr Magnesium Sulfate 4 gm/ Sodium (Chloride) 100 mls @ 50 mls/hr IV.SIG UNSCH PRN PRN Reason: For Magnesium 0.9 - 1.1 mg/dL Magnesium Sulfate 2 gm/ Sodium (Chloride) 100 mls @ 50 mls/hr IV.SIG UNSCH PRN PRN Reason: For Magnesium 1.2 - 1.6 mg/dL Potassium Chloride (Kcl 20 Meq Premix Inj) 20 meq in 100 mls @ 50 mls/hr IV.SIG Q2H PRN PRN Reason: For Potassium 3.3 - 3.5 mEq/L Potassium Chloride (Kcl 40 Meq Premix Inj) 40 meq in 100 mls @ 25 mls/hr IV.SIG UNSCH PRN PRN Reason: For Potassium 3.3 - 3.5 mEq/L Potassium Chloride (Kcl 20 Meq Premix Inj) 20 meq in 100 mls @ 50 mls/hr IV.SIG Q2H PRN PRN Reason: For Potassium 2.8 - 3.2 mEq/L Potassium Phosphate 30 mmol/ (Sodium Chloride) 260 mls @ 42 mls/hr IV.SIG UNSCH PRN PRN Reason: SEE LABEL COMMENTS Sodium Phosphate 30 mmol/ (Sodium Chloride) 260 mls @ 42 mls/hr IV.SIG UNSCH PRN PRN Reason: For Phosphorus < 2.5 mg/dL Potassium Chloride (Kcl 40 Meq Premix Inj) 40 meq in 100 mls @ 25 mls/hr IV.SIG Q2H PRN PRN Reason: For Potassium 2.8 - 3.2 mEq/L Labetalol HCl (Trandate Inj) 10 mg IV.PUSH Q4H PRN PRN Reason: SBP>160, DBP>90 Last Admin: 04/22/18 16:05 Dose: 10 mg Lactulose (Lactulose Liq) 30 ml PO DAILY PRN PRN Reason: SEVERE CONSITIPATION Lamotrigine (Lamictal) 150 mg PO DAILY [facility] Last Admin: 04/22/18 12:32 Dose: 150 mg Magnesium Oxide (Mag-Ox) 800 mg PO UNSCH PRN PRN Reason: For Magnesium 1.2 - 1.6 mg/dL Miscellaneous (Pill Splitter) 1 each OTHER UNSCH PRN PRN Reason: SEE LABEL COMMENTS Olanzapine (Zyprexa) 20 mg PO [facility] Ondansetron HCl (Zofran Inj) 4 mg IV.PUSH Q6H PRN PRN Reason: NAUSEA OR VOMITING Paliperidone Palmitate (Invega Er) 9 mg PO DAILY [facility] Last Admin: 04/22/18 12:32 Dose: 9 mg Potassium Bicarb/Potassium Chloride (K-Lyte Cl Eff) 50 meq PO UNSCH PRN PRN Reason: For Potassium 3.3 - 3.5 mEq/L Potassium Phosphate (K-Phos Original) 2,000 mg PO Q4H PRN PRN Reason: Phosphorus Less Than 2.5 mg/dL Potassium Phosphate (K-Phos Original) 2,000 mg PO UNSCH PRN PRN Reason: SEE LABEL COMMENTS Senna/Docusate Sodium (Zaira-Colace) 1 tab PO BID [facility] Last Admin: 04/22/18 12:32 Dose: Not Given Sennosides (Senokot) 17.2 mg PO Q12H PRN PRN Reason: Moderate Constipation Sodium Chloride (Ns Flush) 2 ml IV.FLUSH BID [facility] Last Admin: 04/22/18 12:31 Dose: 2 ml Sodium Chloride (Ns Flush) 2 ml IV.FLUSH PRN PRN PRN Reason: FLUSH AFTER USING IV ACCESS Allergies Allergy/AdvReac Type Severity Reaction Status Date / Time cat dander Allergy Edema, Verified 04/21/18 18:01 Localized chlorpromazine Allergy Fever Verified 04/21/18 18:00 [From Thorazine] haloperidol [From Haldol] Allergy Shakiness Verified 04/21/18 18:00 Home Medications Medication Instructions Recorded Confirmed Type Multi Vitamin 04/22/18 04/22/18 History clonazepam 0.5 mg PO BID 04/22/18 04/22/18 History lamotrigine [Lamictal] 150 mg PO DAILY 04/22/18 04/22/18 History olanzapine [Zyprexa] 20 mg PO HS 04/22/18 04/22/18 History paliperidone [Invega] 9 mg PO DAILY 04/22/18 04/22/18 History Exam Vital signs: Vital Signs 04/21/18 20:00 04/21/18 20:30 04/21/18 21:00 Temperature Pulse Rate 79 83 68 Respiratory Rate 16 18 18 Blood Pressure 198/118 H 205/114 H 174/106 H Pulse Oximetry 100 100 100 04/21/18 21:30 04/21/18 23:00 04/22/18 00:00 Temperature 98.4 F 98.4 F Pulse Rate 76 74 74 Respiratory Rate 18 15 17 Blood Pressure 180/118 H 158/101 H 155/99 H Pulse Oximetry 100 100 100 04/22/18 01:00 04/22/18 02:00 04/22/18 03:00 Temperature 98 F 98 F 98.1 F Pulse Rate 68 71 73 Respiratory Rate 18 20 17 Blood Pressure 171/98 H 146/106 H 159/101 H Pulse Oximetry 100 100 100 04/22/18 04:00 04/22/18 05:00 04/22/18 06:00 Temperature 98.3 F 98.1 F 98.1 F Pulse Rate 75 70 73 Respiratory Rate 18 16 18 Blood Pressure 172/111 H 167/110 H 162/117 H Pulse Oximetry 100 100 100 04/22/18 07:00 04/22/18 08:00 04/22/18 09:00 Temperature 98.1 F 98.1 F Pulse Rate 75 69 76 Respiratory Rate 20 16 20 Blood Pressure 159/109 H 193/151 H 193/125 H Pulse Oximetry 100 100 98 04/22/18 10:00 04/22/18 11:00 04/22/18 12:00 Temperature 98.4 F Pulse Rate 63 65 91 H Respiratory Rate 18 22 16 Blood Pressure 214/124 H 165/68 H 138/73 Pulse Oximetry 98 98 98 04/22/18 13:00 04/22/18 14:00 04/22/18 15:00 Temperature Pulse Rate 84 89 74 Respiratory Rate 18 20 22 Blood Pressure 169/109 H 196/120 H 167/108 H Pulse Oximetry 98 98 99 04/22/18 16:00 04/22/18 17:00 Temperature Pulse Rate 63 59 L Respiratory Rate 20 24 Blood Pressure 174/107 H 164/103 H Pulse Oximetry 99 99 Intake & Output 04/21/18 04/22/18 04/22/18 18:59 06:59 18:59 Intake Total 3214 / 3214 1000 / 1000 Output Total 48316 / 00062 Balance -8286 / -8286 1000 / 1000 Weight 61 kg Intake: IV 214 / 214 1000 / 1000 D5W Inj 1,000 ML @ 50 mls/hr IV 1000 / 1000 .CONT .Q20H [facility] Rx#:[id number] NS Inj 1,000 ML @ 154 mls/hr IV 154 / 154 .CONT .Q6H30M [facility] Rx#:[id number] Sodium Chloride 3% Inj 500 ML @ 60 / 60 20 mls/hr IV.SIG UNSCH PRN Rx# :[id number] Oral 3000 / 3000 Output: Urine 94029 / 25487 Other: Weight On Admission 62.5 kg Mental Status Examination Appearance: Appropriate Consciousness: Alert Orientation: x4 Motor Activity: Normal gait Speech: Unremarkable Language: Adequate Fund of Knowledge: Adequate Attention and Concentration: Adequate Memory: Unremarkable Mood: Appropriate, Good Affect: Appropriate Thought Process & Associations: Intact Thought Content: Appropriate Hallucination Type: None Delusion Type: None Suicidal Ideation: No Suicidal Plan: No Suicidal Intention: No Homicidal Ideation: No Homicidal Plan: No Homicidal Intention: No Insight: Adequate Judgment: Adequate Assessment and Plan - Assessment (1) Schizophrenia Code(s): F20.9 - Schizophrenia, unspecified Status: Acute - Plan Plan: Estimated LOS: [] days Pt does not meet BA criteria at this time as he is no clear danger to self or others or at risk for self neglect. Schizophrenia symptoms are currently under good control and he has access to outpatient psychiatric care and support from family and case management. BA release form was completed and placed on pt's chart. Justification for Continued Inpatient Stay: complicating medical conditions
[2018-04-22] MEDS: clonazePAM 1 MG Tablet PO SCH (20:20)
[2018-04-22] MEDS: OLANZapine 10 MG Tablet PO SCH (20:20)
[2018-04-22] MEDS: Enoxaparin Inj 40 MG/0.4 ML Syringe SQ SCH (20:21)
--- NOTE | 2018-04-22 22:17 | ECG ---
Date Performed: 04/21/2018 Time Performed: 21:10:14 PTAGE: 37 years EKG: Sinus rhythm NORMAL ECG NO PREVIOUS TRACING DOCTOR: Liliam Quinn Interpretating Date/Time 04/22/2018 22:16:16
[2018-04-23] MEDS: Enoxaparin Inj 40 MG/0.4 ML Syringe SQ SCH ×2 (00:32→20:35)
[2018-04-23] MEDS: ALPRAZolam 0.5 MG Tablet PO PRN ×4 (03:18→18:44)
[2018-04-23] MEDS: Labetalol HCl Inj 100 MG/20 ML Vial IV.PUSH PRN ×3 (03:18→12:55)
[2018-04-23] MEDS: Chlorhexidine Gluconate 2% 1 Pack (2 Cloths) TOPICAL SCH (04:52)
[2018-04-23] MEDS: Senna/Docusate Sodium 8.6/50 MG Tablet PO SCH ×2 (08:29→20:35)
[2018-04-23] MEDS: lamoTRIgine 100 MG Tablet PO SCH (08:30)
[2018-04-23] MEDS: Dextrose 5% in Water Inj 1,000 ML IV.CONT SCH (08:31)
[2018-04-23] MEDS: clonazePAM 0.5 MG Tablet PO SCH (08:31)
--- NOTE | 2018-04-23 08:47 | P.PN ---
Subjective Interval history: Consulted by [facility] for transfer care medical management. Chart reviewed. Discussed with nursing. BP is extremely high. Patient denies chest pain, headache, dizziness and shortness of breath. States he is very anxious and when he is his blood pressure runs high. BP readings reviewed when he was sleeping early this morning, BP within normal limits. Patient takes unrecalled BP medication. Sodium level also stabilize. He is aware he needs to fluid restrict Physical Exam Vital signs: Vital Signs 04/22/18 09:00 04/22/18 10:00 04/22/18 11:00 Temperature Pulse Rate 76 63 65 Respiratory Rate 20 18 22 Blood Pressure 193/125 H 214/124 H 165/68 H Pulse Oximetry 98 98 98 04/22/18 12:00 04/22/18 13:00 04/22/18 14:00 Temperature 98.4 F Pulse Rate 91 H 84 89 Respiratory Rate 16 18 20 Blood Pressure 138/73 169/109 H 196/120 H Pulse Oximetry 98 98 98 04/22/18 15:00 04/22/18 16:00 04/22/18 17:00 Temperature Pulse Rate 74 63 59 L Respiratory Rate 22 20 24 Blood Pressure 167/108 H 174/107 H 164/103 H Pulse Oximetry 99 99 99 04/22/18 19:00 04/22/18 20:00 04/22/18 20:49 Temperature 99 F Pulse Rate 72 63 64 Respiratory Rate 17 16 16 Blood Pressure 176/105 H 162/88 H Pulse Oximetry 99 99 04/22/18 21:00 04/22/18 22:00 04/22/18 23:00 Temperature Pulse Rate 63 69 52 L Respiratory Rate 14 17 15 Blood Pressure 152/95 H 186/116 H 157/101 H Pulse Oximetry 100 100 100 04/23/18 00:00 04/23/18 01:00 04/23/18 02:00 Temperature 99.1 F Pulse Rate 52 L 52 L 51 L Respiratory Rate 15 15 15 Blood Pressure 135/81 110/67 107/67 Pulse Oximetry 100 100 100 04/23/18 03:00 04/23/18 03:28 04/23/18 04:00 Temperature 98.2 F Pulse Rate 52 L 51 L 52 L Respiratory Rate 14 16 16 Blood Pressure 199/119 H 155/95 H Pulse Oximetry 100 100 04/23/18 05:00 04/23/18 06:00 Temperature Pulse Rate 62 57 L Respiratory Rate 14 14 Blood Pressure 186/116 H 181/103 H Pulse Oximetry 100 100 Intake & Output 04/22/18 04/23/18 04/23/18 18:59 06:59 18:59 Intake Total 1000 / 1000 3160 / 3160 1000 / 1000 Output Total 4600 / 4600 Balance 1000 / 1000 -1440 / -1440 1000 / 1000 Weight 61 kg Intake: IV 1000 / 1000 1000 / 1000 1000 / 1000 D5W Inj 1,000 ML @ 50 mls/hr IV 1000 / 1000 1000 / 1000 1000 / 1000 .CONT .Q20H [facility] Rx#:[id number] Oral Supplement 2160 / 2160 Output: Urine 4600 / 4600 Narrative: GENERAL: Well-developed, anxious SKIN: Warm and dry. HEAD: Atraumatic. Normocephalic. EYES: Pupils equal and round. No scleral icterus. No injection or drainage. ENT: No nasal bleeding or discharge. Mucous membranes pink and moist. NECK: Trachea midline. No JVD. CARDIOVASCULAR: Regular rate and rhythm. RESPIRATORY: No accessory muscle use. Clear to auscultation. Breath sounds equal bilaterally. GASTROINTESTINAL: Abdomen soft, non-tender, nondistended. MUSCULOSKELETAL: Extremities without clubbing, cyanosis, or edema. No obvious deformities. NEUROLOGICAL: Awake and alert. No obvious cranial nerve deficits. Motor grossly within normal limits. Five out of 5 muscle strength in the arms and legs. Normal speech. PSYCHIATRIC: Appropriate mood and affect; insight and judgment normal. Results - Labs CBC & Chem 7: 04/22/18 03:40 04/23/18 05:18 Laboratory Results - last 24 hr 04/22/18 04/22/18 04/22/18 08:33 11:48 14:20 Sodium 128 L 129 L 131 L Vitamin B12 295 Folate 12.9 04/22/18 04/23/18 16:26 05:18 Sodium 130 L 130 L Vitamin B12 Folate Microbiology 04/21/18 23:35 Blood - Peripheral Aerobic Blood Culture - Preliminary No growth in 1 day 04/21/18 23:35 Blood - Peripheral Anaerobic Blood Culture - Preliminary No growth in 1 day 04/21/18 23:30 Blood - Peripheral Aerobic Blood Culture - Preliminary No growth in 1 day 04/21/18 23:30 Blood - Peripheral Anaerobic Blood Culture - Preliminary No growth in 1 day - Imaging Impressions Chest X-Ray 04/22/18 00:00 CONCLUSION: 1. No acute cardiopulmonary disease. 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 This has stabilized. Discontinue NS and repeat sodium level in 6 hours. Seizure precautions. Fluid restriction. Leukopenia likely related to psychotropics status post hematology evaluation. B12 295 folate 12.9. 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 BP extremely high. Continue clonidine and labetalol as needed. Discussed with nursing obtain home antihypertensive. DVT GI prophylaxis -Teds SCDs -Lovenox -Regular diet Discharge Planning: Will monitor patient in the ICU because of extreme BP elevation he will likely need intravenous antihypertensive drip
[2018-04-23 10:36] LABS: Baso % (Auto) 0.3 % (0.0-2.0); Eos % (Auto) 0.3 % (0.0-4.0); Hematocrit 35.6 % (39.0-51.0); Hemoglobin 12.1 gm/dL (13.0-17.0); Lymph # (Auto) 0.9 th/mm3 (1.0-4.8); Lymph % (Auto) 30.2 % (9.0-44.0); Mean Corpuscular HGB Conc 33.9 % (32.0-36.0); Mean Corpuscular Hemoglobin 27.1 pg (27.0-34.0); Mean Corpuscular Volume 79.9 fL (80.0-100.0); Mean Platelet Volume 7.4 fL (7.0-11.0); Mono # (Auto) 0.3 th/mm3 (0.0-0.9); Mono % (Auto) 10.5 % (0.0-8.0); Neut # (Auto) 1.7 th/mm3 (1.8-7.7); Neut % (Auto) 58.7 % (16.0-70.0); Platelet Count 250 th/mm3 (150-450); Red Blood Count 4.46 mil/mm3 (4.50-5.90); Red Cell Distribution Width 14.9 % (11.6-17.2); White Blood Count 2.9 th/mm3 (4.0-11.0)
[2018-04-23 15:44] LABS: Anion Gap 8 meq/L (5-15); Blood Urea Nitrogen 3 mg/dL (7-18); Calcium 8.9 mg/dL (8.5-10.1); Carbon Dioxide 24.3 meq/L (21.0-32.0); Chloride 97 meq/L (98-107); Glomerular Filtration Rate Greater Than 89 mL/min (>89); Glucose,Random 134 mg/dL (74-106); Sodium 129 meq/L (136-145)
[2018-04-23] MEDS: Lisinopril 10 MG Tablet PO SCH (16:17)
[2018-04-23] MEDS: clonazePAM 1 MG Tablet PO SCH (20:35)
[2018-04-23] MEDS: OLANZapine 10 MG Tablet PO SCH (20:35)
[2018-04-24] MEDS: Chlorhexidine Gluconate 2% 1 Pack (2 Cloths) TOPICAL SCH (05:05)
[2018-04-24 05:44] LABS: Baso % (Auto) 0.3 % (0.0-2.0); Eos % (Auto) 0.9 % (0.0-4.0); Hematocrit 39.1 % (39.0-51.0); Hemoglobin 13.2 gm/dL (13.0-17.0); Lymph # (Auto) 1.4 th/mm3 (1.0-4.8); Lymph % (Auto) 29.2 % (9.0-44.0); Mean Corpuscular HGB Conc 33.8 % (32.0-36.0); Mean Corpuscular Hemoglobin 27.6 pg (27.0-34.0); Mean Corpuscular Volume 81.6 fL (80.0-100.0); Mean Platelet Volume 7.9 fL (7.0-11.0); Mono # (Auto) 0.5 th/mm3 (0.0-0.9); Mono % (Auto) 10.7 % (0.0-8.0); Neut # (Auto) 2.7 th/mm3 (1.8-7.7); Neut % (Auto) 58.9 % (16.0-70.0); Platelet Count 248 th/mm3 (150-450); Red Cell Distribution Width 15.2 % (11.6-17.2); White Blood Count 4.6 th/mm3 (4.0-11.0)
[2018-04-24 06:05] LABS: Anion Gap 9 meq/L (5-15); Blood Urea Nitrogen 4 mg/dL (7-18); Calcium 8.9 mg/dL (8.5-10.1); Carbon Dioxide 24.8 meq/L (21.0-32.0); Chloride 98 meq/L (98-107); Glomerular Filtration Rate Greater Than 89 mL/min (>89); Glucose,Random 97 mg/dL (74-106); Potassium 3.8 meq/L (3.5-5.1); Sodium 132 meq/L (136-145)
[2018-04-24] MEDS: lamoTRIgine 100 MG Tablet PO SCH (08:30)
[2018-04-24] MEDS: clonazePAM 0.5 MG Tablet PO SCH (08:32)
[2018-04-24] MEDS: Lisinopril 10 MG Tablet PO SCH (08:32)
[2018-04-24] MEDS: Senna/Docusate Sodium 8.6/50 MG Tablet PO SCH ×2 (08:32→20:24)
[2018-04-24] MEDS: ALPRAZolam 0.5 MG Tablet PO PRN ×2 (08:38→20:24)
--- NOTE | 2018-04-24 10:33 | P.PNIM ---
Subjective Interval history: Urinary retention has been a problem. This may be psychogenic in origin. Patient says he has had problems with not being able to urinate in hospitals before, however he says he does not have this problem at home. Blood pressures have been elevated when patient is awake, not when patient is sleeping. Underlying schizophrenia is likely contributory to the patient's reported symptoms. Physical Exam Vital signs: Vital Signs 04/23/18 10:40 04/23/18 10:41 04/23/18 10:42 Temperature 98.5 F Pulse Rate 74 67 69 Respiratory Rate 18 18 18 Blood Pressure 157/108 H 158/106 H 158/108 H Pulse Oximetry 100 100 100 04/23/18 11:00 04/23/18 11:31 04/23/18 12:00 Temperature Pulse Rate 71 74 75 Respiratory Rate 16 19 13 Blood Pressure 145/96 H Pulse Oximetry 99 99 98 04/23/18 12:13 04/23/18 12:36 04/23/18 12:42 Temperature Pulse Rate 75 81 80 Respiratory Rate 16 18 13 Blood Pressure 159/102 H 161/109 H 163/124 H Pulse Oximetry 98 99 99 04/23/18 12:47 04/23/18 12:57 04/23/18 12:58 Temperature Pulse Rate 81 72 67 Respiratory Rate 18 13 13 Blood Pressure 163/108 H 155/115 H 151/103 H Pulse Oximetry 98 99 98 04/23/18 13:00 04/23/18 13:03 04/23/18 14:00 Temperature Pulse Rate 71 67 68 Respiratory Rate 9 L 16 18 Blood Pressure 171/100 H 153/93 H 149/98 H Pulse Oximetry 98 98 98 04/23/18 14:09 04/23/18 14:15 04/23/18 14:30 Temperature Pulse Rate 69 73 66 Respiratory Rate 20 19 18 Blood Pressure 148/100 H 144/95 H 134/100 H Pulse Oximetry 97 97 98 04/23/18 14:33 04/23/18 14:45 04/23/18 14:59 Temperature Pulse Rate 69 70 80 Respiratory Rate 20 17 19 Blood Pressure 146/101 H 166/122 H 157/115 H Pulse Oximetry 98 97 99 04/23/18 15:00 04/23/18 15:03 04/23/18 15:15 Temperature Pulse Rate 73 69 75 Respiratory Rate 16 17 18 Blood Pressure 172/124 H 155/113 H 180/125 H Pulse Oximetry 99 99 99 04/23/18 15:19 04/23/18 15:25 04/23/18 15:28 Temperature Pulse Rate 75 71 79 Respiratory Rate 13 17 10 L Blood Pressure 178/121 H 170/115 H 180/123 H Pulse Oximetry 99 98 98 04/23/18 15:30 04/23/18 15:38 04/23/18 15:39 Temperature Pulse Rate 73 71 67 Respiratory Rate 15 18 19 Blood Pressure 178/115 H 172/116 H 173/112 H Pulse Oximetry 99 98 98 04/23/18 15:42 04/23/18 15:57 04/23/18 16:00 Temperature 99.5 F Pulse Rate 64 65 67 Respiratory Rate 16 17 17 Blood Pressure 178/115 H 178/117 H Pulse Oximetry 98 100 100 04/23/18 16:08 04/23/18 16:13 04/23/18 19:00 Temperature Pulse Rate 70 72 65 Respiratory Rate 19 17 16 Blood Pressure 168/113 H 156/110 H 177/108 H Pulse Oximetry 99 98 100 04/23/18 19:23 04/23/18 20:00 04/23/18 21:00 Temperature 97.9 F Pulse Rate 67 63 66 Respiratory Rate 17 16 14 Blood Pressure 162/106 H 171/106 H 160/107 H Pulse Oximetry 99 98 99 04/23/18 21:19 04/23/18 21:20 04/23/18 22:00 Temperature Pulse Rate 60 62 53 L Respiratory Rate 18 16 11 L Blood Pressure 150/99 H 168/98 H Pulse Oximetry 98 99 04/23/18 23:00 04/24/18 00:00 04/24/18 01:00 Temperature Pulse Rate 57 L 61 70 Respiratory Rate 17 18 17 Blood Pressure 107/65 132/76 167/103 H Pulse Oximetry 95 94 L 99 04/24/18 02:04 04/24/18 02:06 04/24/18 03:00 Temperature Pulse Rate 85 83 56 L Respiratory Rate 19 16 Blood Pressure 122/82 133/82 Pulse Oximetry 04/24/18 04:00 04/24/18 05:00 04/24/18 05:03 Temperature Pulse Rate 57 L 82 74 Respiratory Rate 9 L 21 14 Blood Pressure 137/89 151/100 H 169/108 H Pulse Oximetry 04/24/18 06:00 Temperature Pulse Rate 69 Respiratory Rate 10 L Blood Pressure 152/95 H Pulse Oximetry 98 Intake & Output 04/23/18 04/24/18 04/24/18 18:59 06:59 18:59 Intake Total 1750 / 1750 480 / 480 Output Total 3200 / 3200 900 / 900 Balance -1450 / -1450 -420 / -420 Weight 61 kg Intake: IV 1000 / 1000 D5W Inj 1,000 ML @ 50 mls/hr IV 1000 / 1000 .CONT .Q20H [facility] Rx#:[id number] Oral 750 / 750 480 / 480 Output: Urine 1400 / 1400 900 / 900 Urine Amount (Catheter) 1800 / 1800 Straight 1800 / 1800 Narrative: GENERAL: NAD, A&Ox3 HEAD: Normocephalic. NECK: Supple, trachea midline. No lymphadenopathy. EYES: No scleral icterus. No injection or drainage. CARDIOVASCULAR: Regular rate and rhythm without murmurs, gallops, or rubs. RESPIRATORY: Breath sounds equal bilaterally. No accessory muscle use. GASTROINTESTINAL: Abdomen soft, non-tender, nondistended. MUSCULOSKELETAL: No cyanosis, or edema. SKIN: Warm and dry. NEURO: No focal neurological deficits. - Urinary Catheter Management Straight Cath placed during this visit: yes, but has since been removed by the nurse Reason for continuing: Decision to DC catheter Insertion date: 04/23/18 Insertion time: 15:00 Removal date: 04/23/18 Removal time: 15:30 Results - Labs CBC & Chem 7: 04/24/18 04:29 04/24/18 04:29 Laboratory Results - last 24 hr 04/23/18 04/23/18 04/24/18 10:14 15:00 04:29 WBC 2.9 L 4.6 D RBC 4.46 L 4.80 Hgb 12.1 L D 13.2 Hct 35.6 L 39.1 MCV 79.9 L 81.6 MCH 27.1 27.6 MCHC 33.9 33.8 RDW 14.9 15.2 Plt Count 250 248 MPV 7.4 7.9 Neut % (Auto) 58.7 58.9 Lymph % (Auto) 30.2 29.2 Stone % (Auto) 10.5 H 10.7 H Eos % (Auto) 0.3 0.9 Baso % (Auto) 0.3 0.3 Neut # (Auto) 1.7 L 2.7 Lymph # (Auto) 0.9 L 1.4 Stone # (Auto) 0.3 0.5 Eos # (Auto) 0.0 0.0 Baso # (Auto) 0.0 0.0 WBC Differential . . Differential Comment Auto diff final Auto diff final Sodium 129 L Potassium 4.0 Chloride 97 L Carbon Dioxide 24.3 Anion Gap 8 BUN 3 L Creatinine 0.77 Estimated GFR Greater than 89 Random Glucose 134 H Calcium 8.9 Magnesium 04/24/18 04:29 WBC RBC Hgb Hct MCV MCH MCHC RDW Plt Count MPV Neut % (Auto) Lymph % (Auto) Stone % (Auto) Eos % (Auto) Baso % (Auto) Neut # (Auto) Lymph # (Auto) Stone # (Auto) Eos # (Auto) Baso # (Auto) WBC Differential Differential Comment Sodium 132 L Potassium 3.8 Chloride 98 Carbon Dioxide 24.8 Anion Gap 9 BUN 4 L Creatinine 0.83 Estimated GFR Greater than 89 Random Glucose 97 Calcium 8.9 Magnesium 2.0 Microbiology 04/21/18 23:35 Blood - Peripheral Aerobic Blood Culture - Preliminary No growth in 2 days 04/21/18 23:35 Blood - Peripheral Anaerobic Blood Culture - Preliminary No growth in 2 days 04/21/18 23:30 Blood - Peripheral Aerobic Blood Culture - Preliminary No growth in 2 days 04/21/18 23:30 Blood - Peripheral Anaerobic Blood Culture - Preliminary No growth in 2 days - Procedures None Assessment and Plan - Plan 37-year-old male admitted secondary to hyponatremia Hyponatremia Related to psychogenic polydipsia Improving Continue normal saline Fluid restriction continued Urinary retention Start Flomax May be psychogenic in origin Continue the bladder scan every 12 hours Straight catheter as needed Follow for improvement Schizoaffective disorder Bipolar disorder Psychogenic polydipsia Psychiatry has evaluated this patient and lifted the Perez act Continue Klonopin, InVega, Zyprexa and Lamictal with as needed Xanax Leukopenia Resolved was likely reactive Whitecoat hypertension As needed clonidine if blood pressures raise over 160 Provide patient with privacy DVT Prophylaxis Lovenox Discharge Planning: Further improvement in sodium needed Urinary retention improvement needed
[2018-04-24 17:07] VITALS: TEMP 99.5
[2018-04-24] MEDS ORDERED: Haloperidol Inj 5 MG/ML Ampul IV.PUSH ONE (17:48)
[2018-04-24] MEDS: clonazePAM 1 MG Tablet PO SCH (20:24)
[2018-04-24] MEDS: OLANZapine 10 MG Tablet PO SCH (20:24)
[2018-04-24] MEDS: Enoxaparin Inj 40 MG/0.4 ML Syringe SQ SCH (20:32)
[2018-04-25 06:38] VITALS: BP 135/90; PULSE 74; RESP 19; O2SAT 98
[2018-04-25] MEDS: Chlorhexidine Gluconate 2% 1 Pack (2 Cloths) TOPICAL SCH (06:41)
[2018-04-25] MEDS: lamoTRIgine 100 MG Tablet PO SCH (09:05)
[2018-04-25] MEDS: clonazePAM 0.5 MG Tablet PO SCH (09:09)
[2018-04-25] MEDS: Lisinopril 10 MG Tablet PO SCH (09:09)
[2018-04-25] MEDS: Senna/Docusate Sodium 8.6/50 MG Tablet PO SCH (09:09)
--- NOTE | 2018-04-25 10:08 | P.DS ---
Date of admission: 04/21/18 20:43 Primary care physician: UNKNOWN Brief History from admission: 37-year-old male presents under Perez act for psychiatric evaluation. Per the Perez act report the patient did not feel safe. Patient states that his apartment is a sanctuary. He states that he is afraid of people, crowds, not every day but most days. He states he becomes very anxious while he is in public. He felt that because he was feeling scared in his apartment he called 911 to be evaluated. Patient states that he is not on any blood pressure medicine, his blood pressure goes up when he is around people. Past medical history significant for schizophrenia, OCD. Patient denies any suicidal homicidal ideations. He denies any pain, he does report that he hears voices sometimes. Patient reports compliance with his medications. In the emergency department his sodium was found to be 110 and he has been admitted to ICU with severe hyponatremia. The patient admits excessive drinking of water, and some Gatorade. DS: Medications - Discharge Medications Prescriptions: tamsulosin 0.4 mg PO DAILY #30 cap DS: Summary Hospital Course: Mr. Mcmillan is a 37-year-old male. He has schizophrenia baseline. He was admitted secondary to severe hyponatremia and hypokalemia related to psychogenic polydipsia. This is gradually been improved with IV hydration with normal saline and fluid restriction. Patient has been stabilized in this regard. However, he was having some issues with exacerbation of his hallucinations which is likely related to electrolyte disturbance and hospitalization. He has returned back to baseline by today. He also had urinary retention issues while here which are partly psychogenic in origin. Flomax is started on an as-needed basis. Today he is medically stable and cleared for discharge back to home. He discharges to home to continue living with his mother. Cleared for discharge today. - Time Spent with Patient Total time spent providing and/or coordinating discharge services: Less than 30 minutes - Quality: VTE Deep Vein Thrombosis/Pulmonary Embolism Present on Admission: No Exam Vital signs: Vital Signs 04/24/18 10:47 04/24/18 11:00 04/24/18 12:00 Temperature 97.2 F L Pulse Rate 118 H 87 92 H Respiratory Rate 18 17 17 Blood Pressure 148/96 H Pulse Oximetry 99 04/24/18 13:00 04/24/18 13:30 04/24/18 14:00 Temperature Pulse Rate 86 102 H 88 Respiratory Rate 13 23 17 Blood Pressure 178/115 H Pulse Oximetry 100 97 99 04/24/18 14:33 04/24/18 15:00 04/24/18 16:00 Temperature 99.5 F Pulse Rate 88 90 89 Respiratory Rate 16 27 H 19 Blood Pressure 154/111 H 162/115 H 187/121 H Pulse Oximetry 98 98 75 L 04/24/18 16:03 04/24/18 16:05 04/24/18 16:09 Temperature Pulse Rate 91 H 91 H 100 H Respiratory Rate 19 18 20 Blood Pressure 189/122 H 194/121 H 190/110 H Pulse Oximetry 66 L 64 L 67 L 04/24/18 16:16 04/24/18 16:41 04/24/18 16:47 Temperature Pulse Rate 93 H 91 H 86 Respiratory Rate 17 23 19 Blood Pressure 193/128 H 197/119 H 192/112 H Pulse Oximetry 100 98 04/24/18 17:00 04/24/18 18:00 04/24/18 18:38 Temperature Pulse Rate 82 97 H Respiratory Rate 19 19 Blood Pressure 170/105 H Pulse Oximetry 96 96 96 04/24/18 19:56 04/24/18 19:59 04/24/18 20:00 Temperature Pulse Rate 101 H 103 H 107 H Respiratory Rate 17 20 Blood Pressure 159/104 H 174/116 H Pulse Oximetry 04/24/18 20:31 04/24/18 21:00 04/24/18 21:01 Temperature Pulse Rate 85 99 H 118 H Respiratory Rate 32 H 18 11 L Blood Pressure 163/98 H 142/95 H Pulse Oximetry 04/24/18 22:00 04/24/18 23:00 04/25/18 00:00 Temperature Pulse Rate 95 H 79 64 Respiratory Rate 20 20 16 Blood Pressure 125/77 128/99 H 95/59 L Pulse Oximetry 04/25/18 01:00 04/25/18 02:00 04/25/18 03:00 Temperature Pulse Rate 71 70 67 Respiratory Rate 16 18 17 Blood Pressure 116/78 121/83 111/66 Pulse Oximetry 04/25/18 04:00 04/25/18 04:03 04/25/18 05:00 Temperature Pulse Rate 69 74 63 Respiratory Rate 17 19 Blood Pressure 118/72 126/85 Pulse Oximetry 98 04/25/18 06:00 Temperature Pulse Rate 74 Respiratory Rate Blood Pressure 135/90 Pulse Oximetry Intake & Output 04/24/18 04/25/18 04/25/18 18:59 06:59 18:59 Intake Total 750 / 750 720 / 720 Output Total 2500 / 2500 900 / 900 Balance -1750 / -1750 -180 / -180 Weight 57 kg Intake: Oral 750 / 750 720 / 720 Output: Urine 1000 / 1000 900 / 900 Urine Amount (Catheter) 1500 / 1500 Straight 1500 / 1500 Results Procedures completed during hospitalization: None Labs on day of discharge: Preliminary micro results at discharge 04/21/18 23:35 Aerobic Blood Culture - Preliminary Blood - Peripheral No growth in 3 days Anaerobic Blood Culture - Preliminary No growth in 3 days 04/21/18 23:30 Aerobic Blood Culture - Preliminary Blood - Peripheral No growth in 3 days Anaerobic Blood Culture - Preliminary No growth in 3 days - Impressions ITS Impressions Chest X-Ray 04/22/18 00:00 CONCLUSION: 1. No acute cardiopulmonary disease. Discharge Plan - Discharge Disposition Patient Disposition: Discharge Home - Discharge Condition Condition: Stable - Discharge Order Discharge Orders: Discharge Order (Routine); Ordered 04/25/18 Ordered By: Giuliano Lambert - Discharge Details Anticipated Discharge Date: 04/25/18 - Physicians Team Primary Care Provider: UNKNOWN, Attending Provider: Giuliano Lambert Other Providers: Osmani Ryan MD ; Kvng Hurtado MD
== END 2018-04-25 11:30 | disposition home or self-care (01) ==
LOC: NEDAMB 17:44 → NEDA 20:43 → HIMC 22:05
PROVIDERS: ADMIT Hospitalist; ATTEND Hospitalist

== ENCOUNTER 2018-04-25 16:05 | Inpatient (IN) ==
[2018-04-25 18:05] LABS: Calcium 8.8 mg/dL (8.5-10.1); Carbon Dioxide 21.2 meq/L (21.0-32.0); Potassium 4.3 meq/L (3.5-5.1)
--- NOTE | 2018-04-25 18:53 | ED ---
HPI General Chief Complaint: Psychiatric Symptoms Stated Complaint: Psych Eval/VCSO Time Seen by Provider: 04/25/18 16:22 Source: patient Mode of arrival: ambulatory Limitations: no limitations History of Present Illness HPI Narrative: 37-year-old male presents to the emergency room under a Perez act initiated by psychiatrist at [facility]. History is vague. And patient can provide no meaningful history. On arrival he is combative, screaming, and threatening staff verbally. He is trying to hit staff and jump out of his wheelchair. He had to be immediately medicated with Zyprexa and Ativan and placed in locked restraints for the safety of the staff and himself. According to EMR, patient was discharged earlier today after being admitted for hyponatremia of 110. Hyponatremia was due to polydipsia which was caused by his schizophrenia. Patient stated previously that he drank 2 gallons of water. Upon my assessment, he is none cooperative and refuses to answer questions. complaint: Reports altered mental status Onset (ago): day(s) Duration: constant History of same: Yes Relieving factors: none Exacerbating factors: none Associated psychiatric symptoms: Reports none Treatments prior to arrival: Reports placed on mental health hold Related Data Home Medications Medication Instructions Recorded Confirmed Multi Vitamin 04/22/18 04/22/18 clonazepam 0.5 mg PO BID 04/22/18 04/22/18 lamotrigine [Lamictal] 150 mg PO DAILY 04/22/18 04/22/18 olanzapine [Zyprexa] 20 mg PO HS 04/22/18 04/22/18 paliperidone [Invega] 9 mg PO DAILY 04/22/18 04/22/18 Previous Rx's Medication Instructions Recorded tamsulosin 0.4 mg PO DAILY #30 cap 04/25/18 Allergies Allergy/AdvReac Type Severity Reaction Status Date / Time cat dander Allergy Edema, Verified 04/25/18 16:16 Localized chlorpromazine Allergy Fever Verified 04/25/18 16:16 [From Thorazine] haloperidol [From Haldol] Allergy Shakiness Verified 04/25/18 16:16 Review of Systems ROS: all other systems reviewed are negative PMFSH Social History Social History Substance History: No History of Abuse and Past History ("Tried a little bit of everything ".) Smoking Status: Current every day smoker Tobacco Type: Cigarettes Packs Per Day: 2 Cigarettes Per Day: 40.0 Years Smoked: 20 Pack-Years: 40.00 How Often Do You Have a Drink Containing Alcohol: Never Hx Recent Travel: No Recent Travel in [facility] within the Last 8 Weeks: No Recent Out of Country Travel within the Last 8 Weeks: No Exam Narrative Exam Narrative: GENERAL: Well-nourished, disheveled male. Combative. Screaming. SKIN: Focused skin assessment warm/dry. HEAD: Normocephalic. EYES: No scleral icterus. No injection or drainage. NECK: Supple, trachea midline. No JVD or lymphadenopathy. CARDIOVASCULAR: Regular rate and rhythm without murmurs, gallops, or rubs. RESPIRATORY: Breath sounds equal bilaterally. No accessory muscle use. PSYCHIATRIC: No hallucinations. Patient is manic, threatening to staff. Course Initial Documented Vital Signs Blood Pressure 157/82 H 04/25/18 16:16 Last Documented Vital Signs Temperature 98.2 F 04/25/18 18:20 Pulse Rate 115 H 04/25/18 18:20 Respiratory Rate 20 04/25/18 18:20 Blood Pressure 144/93 H 04/25/18 18:20 Pulse Oximetry 96 04/25/18 18:20 Medical Decision Making MDM Narrative Medical decision making narrative: 37-year-old male with history of schizophrenia presents to the emergency room under a Perez act for evaluation of altered mental status. Patient was seen at [facility] and placed under a Perez act by the psychiatrist there. Upon arrival, he is extremely combative and aggressive verbally threatening to cut heads off of staff and trying to swing at staff as well as jump out of the wheelchair. He is clearly psychotic. He had to be restrained in four-point locked restraints and given Zyprexa and Ativan. Upon reassessment, he is calmer though appears irritable. For the safety of staff and himself, restraint order was continued for 4 hours. Patient was just discharged earlier today after being admitted for hyponatremia of 110. He was discharged with his mother. Patient provides no meaningful history. Labs were drawn yesterday and were essentially unremarkable; repeat BMP today shows mild hyponatremia of 128. Patient placed on fluid restriction as the likely cause of his hyponatremia is from drinking gallons of water. Medical Screen Exam Complete: Yes Emergency Medical Condition: Yes Differential Diagnosis Differential Diagnosis: Schizophrenia, substance induced mood disorder, adjustment disorder Lab Data Result diagrams: 04/25/18 16:38 Lab Results 04/25/18 Range/Units 16:38 Sodium 128 L (136-145) meq/L Potassium 4.3 (3.5-5.1) meq/L Chloride 93 L (98-107) meq/L Carbon Dioxide 21.2 (21.0-32.0) meq/L Anion Gap 14 (5-15) meq/L BUN 4 L (7-18) mg/dL Creatinine 1.13 (0.60-1.30) mg/dL Estimated GFR 73 L (>89) mL/min Random Glucose 143 H (74-106) mg/dL Calcium 8.8 (8.5-10.1) mg/dL Discharge Plan Discharge Disposition Patient Disposition: 30 Still Patient Physicians Team ED Provider: Pa Baker ED Midlevel Provider: Meme King Primary Care Provider: UNKNOWN, Rxs /Orders / Referrals /Forms Prescriptions: No Action lamotrigine [Lamictal] 150 mg Tablet 150 mg PO DAILY RF: 0 clonazepam 0.5 mg Tablet 0.5 mg PO BID RF: 0 olanzapine [Zyprexa] 20 mg Tablet 20 mg PO HS RF: 0 paliperidone [Invega] 9 mg Tablet Extended Release 24hr 9 mg PO DAILY RF: 0 Multi Vitamin RF: 0 tamsulosin 0.4 mg Capsule 0.4 mg PO DAILY Qty: 30 RF: 0 Discharge Interventions Interventions: Vital Signs Last Done: 04/25/18 18:20 Status ED Status: With Doctor
[2018-04-26] MEDS ORDERED: OLANZapine 10 MG Tablet PO ONE (03:00)
[2018-04-26] MEDS ORDERED: Aluminum/Magnesium/Simethacone Susp 30 ML UDC PO PRN (08:20)
[2018-04-26] MEDS ORDERED: Bisacodyl 10 MG Supp RECTAL PRN (08:20)
[2018-04-26] MEDS ORDERED: lamoTRIgine 100 MG Tablet PO SCH (09:00)
[2018-04-26] MEDS ORDERED: clonazePAM 0.5 MG Tablet PO SCH (09:00)
[2018-04-26] MEDS ORDERED: Senna/Docusate Sodium 8.6/50 MG Tablet PO SCH (09:00)
--- NOTE | 2018-04-26 12:25 | P.HPPSY ---
Provisional Diagnosis Admission Date: April 26, 2018 08:22 [place] I.: Schizophrenia acute exacerbation Competence Certification of Person's Competence To Provide Express and Informed Consent I have personally examined Harshad Mcmillan, a person being served at [facility] on, April 26, 2018 1206. Express and informed consent means consent voluntarily given in writing, by a competent person, after sufficient explanation and disclosure of the subject matter involved to enable the person to make a knowing and willful decision without any element of force, fraud, deceit, duress, or other form of constraint or coercion. This person is 18 years of age or older, is not now known to be incompetent to consent to treatment with a guardian advocate, and does not have a health care surrogate or proxy currently making medical treatment decisions. I have found this person to be one of the following: [] Competent to provide express and informed consent, as defined above, for voluntary admission to this facility and is competent to provide express and informed consent for treatment. He/she has the consistent capacity to make well reasoned, willful, and knowing decisions concerning his or her medical or mental health treatment. The person fully and consistently understands the purpose of the admission for examination/placement and is fully capable of personally exercising all rights assured [place] Incompetent to provide express and informed consent to voluntary admission, and this is incompetent to provide express and informed consent to treatment. The person must be transferred to involuntary status and a petition for a guardian advocate filed with the Circuit Court. [x] Refusing to provide express and informed consent to voluntary admission but is competent to provide express and informed consent for treatment. The person must be discharged or transferred to involuntary status. Form shall be completed within 24 hours of a person's arrival at the receiving facility and filed in the clinical record of each person: 1. Admitted on a voluntary basis 2. Permitted to provide express and informed consent to his/her own treatment 3. Allowed to transfer from involuntary to voluntary status 4. Prior to permitting a person to consent to his or her own treatment after having been previously found incompetent to consent to treatment. History of Present Illness Capacity: Lacks capacity History of Present Illness: The patient is a 37-year-old man, with a psychiatric history of schizophrenia, psychogenic polydipsia, OCD, previous psychiatric admissions, with olanzapine 10 mg twice daily, clonazepam 1 mg 3 times daily, Lamictal 100 mg, medical history hypertension, asthma, who presents to the emergency room under a Perez act initiated by psychiatrist at [facility]. History is vague. And patient can provide no meaningful history. On arrival he is combative, screaming, and threatening staff verbally. He was initially trying to hit staff and jump out of his wheelchair. He had to be immediately medicated his arrival to the ER with Zyprexa and Ativan and placed in locked restraints for the safety of the staff and himself. According to EMR, patient was discharged earlier today after being admitted for hyponatremia of 110. Hyponatremia was due to polydipsia which was caused by his schizophrenia. Patient stated previously that he drank 2 gallons of water. As per nurse report the patient has being very disruptive in the unit, walking naked, very difficult to redirect, talking to himself, very disorganized with sonia loosening of associations. Today my psychiatric evaluation I find him in his room, he is selectively mute, no answering any of my questions, when I left the room, he left behind me and took his clothing off int he unit. He had to be medicated again with Zyprexa 20 mg to calm him down. No collateral information could be reached at this moment per PPHx: Schizophrenia, multiple psychiatric hospitalizations, outpatient in [facility], he is on Lamictal 100 mg, clonazepam 1 mg 3 times daily, olanzapine 10 mg twice daily PMHx: Asthma Bipolar 1 disorder Hypertension Obsessive compulsive disorder Psychogenic polydipsia Schizoaffective disorder Surgical history unknown Substance Hx: Heavy smoker, 30-40 cigarettes/day, but there is no documentation of use of drugs or alcohol Social Hx: Unknown Family HX: Unknown - Inpatient Certification I certify that the inpatient services were ordered in accordance with Medicare regulations governing the order. This includes certification that hospital inpatient services are reasonable and necessary and in the case of services not specified as inpatient-only under 42 CFR 419.22(n), that they are appropriately provided as inpatient services in accordance to with the 2-midnight benchmark under 43 CFR 412.3(e) I certify that inpatient psychiatric hospital services are medically necessary. Evaluation and treatment and/or diagnostic testing are expected to improve the patient's condition. The patient needs on a daily basis, active treatment furnished directly by or requiring the supervision of inpatient psychiatric facility personnel. Estimated Total Length of Stay (Days): 7 Plans for Post Hospital Care: Home [facility] - History History Provided By: Patient - Medical History Medical History: Medical History (Last Reviewed 04/25/18 @ 16:17 by Rosa Chavez) Asthma Bipolar 1 disorder Hypertension Obsessive compulsive disorder Psychogenic polydipsia Schizoaffective disorder Surgical history unknown - Surgical History Surgical History: Surgical History (Last Reviewed 04/25/18 @ 16:17 by Rosa Chavez) No history of previous surgery - Tobacco History Smoking Status: Current every day smoker Tobacco Type: Cigarettes Packs Per Day: 2 Cigarettes Per Day: 40 Years Smoked: 20 - Alcohol History How Often Do You Have a Drink Containing Alcohol: Never - Substance Use History Substance History: No History of Abuse, Past History ("Tried a little bit of everything ".) - Travel History History of Recent Travel: No Recent Travel in the [place] Within the Last 8 Weeks: No Recent Travel Out of the Country Within the Last 8 Weeks: No Medications and Allergies Active Medications: Active Medications Al Hydrox/Mg Hydrox/Simethicone (Mag-Al Plus Susp Liq) 30 ml PO Q6H PRN PRN Reason: DYSPEPSIA Al Hydroxide/Mg Hydroxide (Milk Of Magnesia Liq) 30 ml PO Q12H PRN PRN Reason: Mild Constipation Bisacodyl (Dulcolax Supp) 10 mg RECTAL DAILY PRN PRN Reason: SEVERE CONSITIPATION Clonazepam (Klonopin) 0.5 mg PO BID HALEY Lactulose (Lactulose Liq) 30 ml PO DAILY PRN PRN Reason: SEVERE CONSITIPATION Lamotrigine (Lamictal) 150 mg PO DAILY HALEY Miscellaneous (Pill Splitter) 1 each OTHER DAILY HALEY Olanzapine (Zyprexa Zydis Odt) 20 mg PO HS HALEY Senna/Docusate Sodium (Zaira-Colace) 1 tab PO BID HALEY Sennosides (Senokot) 17.2 mg PO Q12H PRN PRN Reason: Moderate Constipation Tamsulosin HCl (Flomax) 0.4 mg PO DAILY HALEY Allergies Allergy/AdvReac Type Severity Reaction Status Date / Time cat dander Allergy Edema, Verified 04/25/18 16:16 Localized chlorpromazine Allergy Fever Verified 04/25/18 16:16 [From Thorazine] haloperidol [From Haldol] Allergy Shakiness Verified 04/25/18 16:16 Home Medications Medication Instructions Recorded Confirmed Type Multi Vitamin 1 tab/day 04/22/18 04/22/18 History clonazepam 0.5 mg PO BID 04/22/18 04/26/18 History lamotrigine [Lamictal] 150 mg PO DAILY 04/22/18 04/26/18 History olanzapine [Zyprexa] 20 mg PO HS 04/22/18 04/26/18 History paliperidone [Invega] 9 mg PO DAILY 04/22/18 04/26/18 History Results - Labs CBC & Chem 7: 04/25/18 16:38 Labs: Laboratory Results - last 24 hr 04/25/18 16:38 Sodium 128 L Potassium 4.3 Chloride 93 L Carbon Dioxide 21.2 Anion Gap 14 BUN 4 L Creatinine 1.13 Estimated GFR 73 L Random Glucose 143 H Calcium 8.8 Exam Vital signs: Vital Signs 04/25/18 16:16 04/25/18 18:20 04/25/18 19:01 Temperature 98.2 F 98.1 F Pulse Rate 115 H 103 H Respiratory Rate 20 16 Blood Pressure 157/82 H 144/93 H 158/104 H Pulse Oximetry 96 96 04/25/18 23:52 04/26/18 06:39 Temperature Pulse Rate 131 H 86 Respiratory Rate 16 14 Blood Pressure 104/56 L 137/85 Pulse Oximetry 99 100 Intake & Output 04/25/18 04/26/18 04/26/18 18:59 06:59 18:59 Weight 63.796 kg Narrative: Patient is hyperactive, but no catatonia, no EPS per - Constitutional moderate distress - Routine HEENT Exam Head: Present: normocephalic, atraumatic Eye: Present: EOMI, PERRL, normal accommodation ENT: Present: mucous membranes moist Mental Status Examination Appearance: Dirty, Disheveled Consciousness: Alert Orientation: x4 Motor Activity: Normal gait Speech: Unremarkable Language: Adequate Fund of Knowledge: Adequate Attention and Concentration: Adequate Memory: Unremarkable Mood: Oppositional, Manic Affect: Irritable Thought Process & Associations: Intact, Loose associations, Disorganized Thought Content: Bizarre thinking, Delusional Hallucination Type: None Delusion Type: Bizarre, Paranoid Suicidal Ideation: No Suicidal Plan: No Suicidal Intention: No Homicidal Ideation: No Homicidal Plan: No Homicidal Intention: No Insight: Poor Judgment: Adequate Assessment and Plan - Assessment (1) Schizophrenia Code(s): F20.9 - Schizophrenia, unspecified Status: Acute - Plan Plan: Patient presents very disorganized, tangential, with loosening of associations, unable to follow verbal direction, very aggressive, walking naked in the street and then in the ER. Patient seems to be having a decompensation of his schizophrenia. Patient has had significant reality contact impairment, with increased paranoia, loosening of associations, disorganized behavior and speech , he needs to be admitted in psychiatry for stabilization and safety. Will restart his olanzapine 10 mg twice daily, Lamictal 100 mg, clonazepam 1 mg twice daily. Will consult psychiatry for second opinion, hospitalist for hyponatremia secondary to psychogenic polydipsia. Transfer to 2700. Justification for Continued Inpatient Stay: Admitted in 2700
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
[2018-04-26] MEDS ORDERED: OLANZapine 20 MG Tab.Rapdis PO SCH (21:00)
--- NOTE | 2018-04-27 09:57 | P.CONPSY ---
Provisional Diagnosis Admission Date: April 26, 2018 08:22 [place] [facility].: 1. Schizophrenia, unspecified type, in acute exacerbation suspect with catatonia 2. Psychogenic polydipsia [place].: Deferred History of Present Illness Service: Psychiatry Consult date: 04/27/18 Requesting Physician: Kvng Hurtado Reason for Consult: Second opinion for involuntary psychiatric hospitalization Primary Care Provider: UNKNOWN Chief Complaint: Psychosis; excessive thirst History of Present Illness: From Dr. Hurtado's H&P: The patient is a 37-year-old man, with a psychiatric history of schizophrenia, psychogenic polydipsia, OCD, previous psychiatric admissions, with olanzapine 10 mg twice daily, clonazepam 1 mg 3 times daily, Lamictal 100 mg, medical history hypertension, asthma, who presents to the emergency room under a Perez act initiated by psychiatrist at [facility]. History is vague. And patient can provide no meaningful history. On arrival he is combative, screaming, and threatening staff verbally. He was initially trying to hit staff and jump out of his wheelchair. He had to be immediately medicated his arrival to the ER with Zyprexa and Ativan and placed in locked restraints for the safety of the staff and himself. According to EMR, patient was discharged earlier today after being admitted for hyponatremia of 110. Hyponatremia was due to polydipsia which was caused by his schizophrenia. Patient stated previously that he drank 2 gallons of water. As per nurse report the patient has being very disruptive in the unit, walking naked, very difficult to redirect, talking to himself, very disorganized with sonia loosening of associations. Today my psychiatric evaluation I find him in his room, he is selectively mute, no answering any of my questions, when I left the room, he left behind me and took his clothing off int he unit. He had to be medicated again with Zyprexa 20 mg to calm him down. No collateral information could be reached at this moment per PPHx: Schizophrenia, multiple psychiatric hospitalizations, outpatient in [facility], he is on Lamictal 100 mg, clonazepam 1 mg 3 times daily, olanzapine 10 mg twice daily PMHx: Asthma Bipolar 1 disorder Hypertension Obsessive compulsive disorder Psychogenic polydipsia Schizoaffective disorder Surgical history unknown Substance Hx: Heavy smoker, 30-40 cigarettes/day, but there is no documentation of use of drugs or alcohol Social Hx: Unknown Family HX: Unknown On my examination today, 04/27: Patient seen and examined with nurse and counselor. Chart reviewed. I note patient was recently hospitalized for severe hyponatremia associated with polydipsia. I note the patient ate dinner last night but refused breakfast this morning. Case discussed with nursing staff. On my examination today, the patient is lying in bed. He exhibits posturing and negativism. He is able to follow some simple commands. He is mute. He is able to shake his head yes and no on occasion, but this is not consistent, and I am not sure if the information obtained from this method of communication is accurate. He appears frankly internally stimulated. He weeps at intervals for unclear reasons. Psychiatric interview is extremely limited because of the patient's degree of psychiatric impairment. I am unable to obtain any meaningful past psychiatric, family, chemical dependency or social history from the patient for the same reason. He does not appear to be in any physical distress. Given the patient's degree of psychiatric impairment, I obtained collateral information from his outpatient psychiatrist, Dr. Kaufman with the [facility] team. Dr. Kaufman reports that he has treated the patient for the past 12 years. He notes that the patient, when he is decompensated, is one of the most psychotic patient's Dr. Kaufman has treated. 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 He also was able to another client with mental illness, although they now live apart and see each other on weekends. In the last 4 months he has developed issues with psychogenic polydipsia and is reportedly consuming 3 gal/day of water plus iced tea besides. When he arrived in the office after discharge from the medical hospital patient was reportedly yelling, screaming and disrobing in the office. He urinated in the office. Dr. Shen recommends adding Thorazine to current regimen, noting that patient has used this medication off and on for psychotic symptoms, always to good effect. Dr. Kaufman notes that the listed allergy to Thorazine in our EMR is absolutely untrue, and I will remove this as a listed allergy. Current regimen is: Zyprexa 10mg BID Invega 9mg daily LCT 100mg BID Klonopin 0.5mg TID Dr. Kaufman notes that mother is quite involved in case and would be logical choice for HCS. He will get me her number later today. Review of Systems unobtainable due to mental condition PMFSH - History History Provided By: Patient - Medical History Medical History: Medical History (Last Reviewed 04/26/18 @ 15:01 by BENJY Farmer) Asthma Bipolar 1 disorder Hypertension Obsessive compulsive disorder Psychogenic polydipsia Schizoaffective disorder Surgical history unknown - Surgical History Surgical History: Surgical History (Last Reviewed 04/26/18 @ 15:01 by BENJY Farmer) No history of previous surgery - Family History Family History: Family History (Last Reviewed 04/26/18 @ 15:01 by BENJY Farmer) Other Unknown family medical history - Tobacco History Second Hand Smoke Exposure: Yes Tobacco Use In Past 30 Days: Yes Smoking Status: Heavy tobacco smoker Tobacco Type: Cigarettes Packs Per Day: 2 Cigarettes Per Day: 40 Years Smoked: 20 - Alcohol History How Often Do You Have a Drink Containing Alcohol: Unable to Obtain - Substance Use History Substance History: Unable to Obtain - Travel History History of Recent Travel: No Recent Travel in the [place] Within the Last 8 Weeks: No Recent Travel Out of the Country Within the Last 8 Weeks: No Medications and Allergies Active Medications: Active Medications Al Hydrox/Mg Hydrox/Simethicone (Mag-Al Plus Susp Liq) 30 ml PO Q6H PRN PRN Reason: DYSPEPSIA Al Hydroxide/Mg Hydroxide (Milk Of Magnesia Liq) 30 ml PO Q12H PRN PRN Reason: Mild Constipation Artificial Tears (Eucerin Cream) 1 applicatio TOPICAL BID [facility] Last Admin: 04/26/18 21:15 Dose: Not Given Bisacodyl (Dulcolax Supp) 10 mg RECTAL DAILY PRN PRN Reason: SEVERE CONSITIPATION Clonazepam (Klonopin) 0.5 mg PO BID [facility] Last Admin: 04/26/18 20:35 Dose: Not Given Lactulose (Lactulose Liq) 30 ml PO DAILY PRN PRN Reason: SEVERE CONSITIPATION Lamotrigine (Lamictal) 150 mg PO DAILY [facility] Miscellaneous (Pill Splitter) 1 each OTHER DAILY [facility] Olanzapine (Zyprexa Zydis Odt) 20 mg PO HS [facility] Senna/Docusate Sodium (Zaira-Colace) 1 tab PO BID [facility] Last Admin: 04/26/18 20:37 Dose: 1 tab Sennosides (Senokot) 17.2 mg PO Q12H PRN PRN Reason: Moderate Constipation Tamsulosin HCl (Flomax) 0.4 mg PO DAILY [facility] Allergies Allergy/AdvReac Type Severity Reaction Status Date / Time cat dander Allergy Edema, Verified 04/25/18 16:16 Localized haloperidol [From Haldol] Allergy Shakiness Verified 04/25/18 16:16 Home Medications Medication Instructions Recorded Confirmed Type Multi Vitamin 1 unit 04/22/18 04/22/18 History clonazepam 0.5 mg PO BID 04/22/18 04/26/18 History lamotrigine [Lamictal] 150 mg PO DAILY 04/22/18 04/26/18 History olanzapine [Zyprexa] 20 mg PO HS 04/22/18 04/26/18 History paliperidone [Invega] 9 mg PO DAILY 04/22/18 04/26/18 History Exam Vital signs: Vital Signs 04/26/18 13:29 04/26/18 13:37 04/27/18 06:20 Temperature 98.2 F Pulse Rate 114 H Respiratory Rate 17 20 Blood Pressure 135/87 Pulse Oximetry 98 Narrative: Physical exam completed by hospitalist [facility] consultant. On my examination today, the patient appears to be in no acute physical distress. Except as noted above , no motoric abnormalities noted. Labs and vital signs reviewed: Laboratory Tests 04/21/18 04/21/18 04/22/18 19:20 19:20 03:40 WBC Hgb Plt Count Sodium Potassium Chloride Carbon Dioxide BUN Creatinine Estimated GFR AST 22 ALT 26 Alkaline Phosphatase 105 TSH 1.490 Urine Opiates Screen Neg Ur Barbiturates Screen Neg Ur Amphetamines Screen Neg U Benzodiazepines Scrn Neg Urine Cocaine Screen Neg U Cannabinoids Screen Neg Serum Alcohol Less than 3 04/24/18 04/27/18 04:29 09:40 WBC 4.6 D Hgb 13.2 Plt Count 248 Sodium 135 L Potassium 4.2 Chloride 101 D Carbon Dioxide 22.0 BUN 8 Creatinine 0.88 Estimated GFR Greater than 89 AST ALT Alkaline Phosphatase TSH Urine Opiates Screen Ur Barbiturates Screen Ur Amphetamines Screen U Benzodiazepines Scrn Urine Cocaine Screen U Cannabinoids Screen Serum Alcohol EKG obtained during recent medical hospitalization read normal sinus rhythm with a QTC of 405 ms, not prolonged. Mental Status Examination Appearance: Disheveled Consciousness: Alert Orientation: Person Motor Activity: Other (In bed, some posturing as noted above) Speech: Other (Mute) Attention and Concentration: Easily distracted Affect: Labile Hallucination Type: Other (Appears frankly internally stimulated) Insight: Poor Judgment: Poor Mental Status Exam Remarks: Mental status exam is limited because of muteness. Assessment and Plan - Assessment (1) Schizophrenia Code(s): F20.9 - Schizophrenia, unspecified Status: Acute (2) Catatonia associated with another mental disorder Code(s): F06.1 - Catatonic disorder due to known physiological condition Status: Acute (3) Psychogenic polydipsia Code(s): R63.1 - Polydipsia; F54 - Psychological and behavioral factors associated with disorders or diseases classified elsewhere Status: Acute - Plan Plan: Given the circumstances of patient's presentation here and his presentation on my examination today, I concur with Dr. Hurtado that the patient meets criteria for involuntary psychiatric hospitalization under the Perez act. He is exhibiting signs of catatonia and has obvious self-care deficit. I have completed second opinion paperwork. I will be assuming care of the patient's case. Patient is not presently capacitated to consent for medications, and I will additionally request healthcare surrogate and guardian advocate. Psychotropic medications are on hold until I am able to obtain mother's contact information to get consent from her. Patient would likely benefit from scheduled intramuscular Ativan for the management of catatonia in addition to antipsychotic therapy. Hospitalist input noted and appreciated. Fluid restriction. I will trend BMP through the weekend. Continue to monitor on the high acuity unit. Continue other medications and care as ordered. Justification for Continued Inpatient Stay: Impairment in reality construction. Self-care deficit. High risk for decompensation in less restrictive environment. Discharge Planning: Pending psychiatric stabilization. Request Healthcare Surrogate/Guardian Advocate?: Yes (1) Schizophrenia Qualifiers: Schizophrenia type: unspecified Qualified Code(s): F20.9 - Schizophrenia, unspecified
[2018-04-27 10:54] LABS: Anion Gap 12 meq/L (5-15); Blood Urea Nitrogen 8 mg/dL (7-18); Calcium 8.4 mg/dL (8.5-10.1); Chloride 101 meq/L (98-107); Cholesterol 129 mg/dL (120-200); Glomerular Filtration Rate Greater Than 89 mL/min (>89); Glucose,Random 70 mg/dL (74-106); HDL Cholesterol 61.2 mg/dL (40.0-60.0); LDL Cholesterol,Calculated 54 mg/dL (0-99); Potassium 4.2 meq/L (3.5-5.1); Sodium 135 meq/L (136-145); Triglycerides 69 mg/dL (42-150)
[2018-04-27] MEDS ORDERED: Chlorpromazine Inj 50 MG/2 ML Ampule IM PRN (14:28)
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
[2018-04-27] MEDS: ChlorproMAZINE 50 MG Tablet PO SCH (15:58)
[2018-04-27 17:36] LABS: Hemoglobin A1c 5.6 % (4.3-6.0)
[2018-04-27] MEDS: OLANZapine 10 MG ODT Tablet PO SCH (20:32)
[2018-04-27] MEDS: lamoTRIgine 100 MG Tablet PO SCH (20:33)
[2018-04-28] MEDS: ChlorproMAZINE 50 MG Tablet PO SCH ×2 (04:21→14:41)
[2018-04-28 07:29] LABS: Anion Gap 9 meq/L (5-15); Blood Urea Nitrogen 11 mg/dL (7-18); Calcium 8.5 mg/dL (8.5-10.1); Chloride 102 meq/L (98-107); Glomerular Filtration Rate Greater Than 89 mL/min (>89); Glucose,Random 85 mg/dL (74-106); Potassium 4.5 meq/L (3.5-5.1); Sodium 136 meq/L (136-145)
[2018-04-28 07:53] LABS: Baso % (Auto) 0.2 % (0.0-2.0); Eos # (Auto) 0.1 th/mm3 (0.0-0.4); Eos % (Auto) 1.4 % (0.0-4.0); Hematocrit 38.6 % (39.0-51.0); Hemoglobin 13.2 gm/dL (13.0-17.0); Lymph % (Auto) 16.4 % (9.0-44.0); Mean Corpuscular HGB Conc 34.3 % (32.0-36.0); Mean Corpuscular Volume 81.7 fL (80.0-100.0); Mean Platelet Volume 7.5 fL (7.0-11.0); Mono # (Auto) 0.7 th/mm3 (0.0-0.9); Mono % (Auto) 10.7 % (0.0-8.0); Neut # (Auto) 4.4 th/mm3 (1.8-7.7); Neut % (Auto) 71.3 % (16.0-70.0); Platelet Count 283 th/mm3 (150-450); Red Blood Count 4.72 mil/mm3 (4.50-5.90); Red Cell Distribution Width 15.5 % (11.6-17.2); White Blood Count 6.2 th/mm3 (4.0-11.0)
[2018-04-28] MEDS: OLANZapine 10 MG ODT Tablet PO SCH ×2 (08:28→20:40)
[2018-04-28] MEDS: lamoTRIgine 100 MG Tablet PO SCH ×2 (08:30→20:40)
[2018-04-28] MEDS: Dextrose 5%/NaCl 0.9% Inj 1,000 ML IV.CONT SCH ×2 (11:04→23:19)
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
--- NOTE | 2018-04-28 16:33 | P.PNPSY ---
Subjective Remarks: Patient was seen and case discussed with nursing. Per nursing, they have noticed an improvement in his catatonia. Patient is answering questions with a couple sentences. We discussed what would be his ideal dinner and he said he would like lobster mashed potatoes. However, affect remains quite flat and there is nonspontaneous speech. He denies auditory or visual hallucinations but could be responding to internal stimuli. Compliant with medications Mental Status Examination Appearance: Disheveled Consciousness: Alert Orientation: Person Motor Activity: Other (In bed, some posturing as noted above) Speech: Other (Mute) Language: Adequate Fund of Knowledge: Adequate Attention and Concentration: Easily distracted Memory: Unremarkable Mood: Oppositional, Manic Affect: Labile Thought Process & Associations: Intact, Loose associations, Disorganized Thought Content: Bizarre thinking, Delusional Hallucination Type: Other (Appears frankly internally stimulated) Delusion Type: Bizarre Suicidal Ideation: No Suicidal Plan: No Suicidal Intention: No Homicidal Ideation: No Homicidal Plan: No Homicidal Intention: No Insight: Poor Judgment: Poor Assessment and Plan - Assessment (1) Schizophrenia Code(s): F20.9 - Schizophrenia, unspecified Status: Acute (2) Catatonia associated with another mental disorder Code(s): F06.1 - Catatonic disorder due to known physiological condition Status: Acute (3) Psychogenic polydipsia Code(s): R63.1 - Polydipsia; F54 - Psychological and behavioral factors associated with disorders or diseases classified elsewhere Status: Acute - Plan Plan: Continue current treatment plan Justification for Continued Inpatient Stay: Patient would decompensate in a less restrictive setting Request Healthcare Surrogate/Guardian Advocate?: Yes (1) Schizophrenia Qualifiers: Schizophrenia type: unspecified Qualified Code(s): F20.9 - Schizophrenia, unspecified
[2018-04-29] MEDS: ChlorproMAZINE 50 MG Tablet PO SCH (03:02)
[2018-04-29] MEDS: lamoTRIgine 100 MG Tablet PO SCH ×2 (08:44→20:45)
[2018-04-29] MEDS: OLANZapine 10 MG ODT Tablet PO SCH ×2 (08:58→20:45)
[2018-04-29 09:08] LABS: Anion Gap 9 meq/L (5-15); Blood Urea Nitrogen 5 mg/dL (7-18); Calcium 8.4 mg/dL (8.5-10.1); Carbon Dioxide 26.1 meq/L (21.0-32.0); Chloride 104 meq/L (98-107); Glomerular Filtration Rate Greater Than 89 mL/min (>89); Glucose,Random 122 mg/dL (74-106); Sodium 139 meq/L (136-145)
--- NOTE | 2018-04-29 11:17 | P.PNPSY ---
Subjective Remarks: Patient was seen and case discussed with nursing. Patient is more talkative, there is spontaneous speech. He is interacting more with his surroundings. There is a brightening of affect. Continues to deny psychotic symptoms Mental Status Examination Appearance: Disheveled Consciousness: Alert Orientation: Person, Place Motor Activity: Normal gait Speech: Other (Mute) Language: Adequate Fund of Knowledge: Adequate Attention and Concentration: Easily distracted Memory: Unremarkable Mood: Oppositional, Manic Affect: Labile Thought Process & Associations: Intact, Loose associations, Disorganized Thought Content: Bizarre thinking, Delusional Hallucination Type: Other (Appears frankly internally stimulated) Delusion Type: Bizarre Suicidal Ideation: No Suicidal Plan: No Suicidal Intention: No Homicidal Ideation: No Homicidal Plan: No Homicidal Intention: No Insight: Poor Judgment: Poor Assessment and Plan - Assessment (1) Schizophrenia Code(s): F20.9 - Schizophrenia, unspecified Status: Acute (2) Catatonia associated with another mental disorder Code(s): F06.1 - Catatonic disorder due to known physiological condition Status: Acute (3) Psychogenic polydipsia Code(s): R63.1 - Polydipsia; F54 - Psychological and behavioral factors associated with disorders or diseases classified elsewhere Status: Acute - Plan Plan: Continue current treatment plan Justification for Continued Inpatient Stay: Patient would decompensate in a less restrictive setting Request Healthcare Surrogate/Guardian Advocate?: Yes (1) Schizophrenia Qualifiers: Schizophrenia type: unspecified Qualified Code(s): F20.9 - Schizophrenia, unspecified
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
[2018-04-30] MEDS: ChlorproMAZINE 50 MG Tablet PO SCH ×2 (03:15→14:58)
--- NOTE | 2018-04-30 08:52 | P.PNPSY ---
Subjective Remarks: Patient seen and examined. Chart reviewed. Case discussed with nursing staff. On my examination today, the patient is much more alert and interactive. He tells me that he slept well. He denies SI or HI. Denies AVH. Denies paranoia. Denies side effects from medications. We discuss his current medication treatment plan. He feels that current doses of antipsychotics are adequate and is agreeable to taper of Ativan now that catatonia seems to be improved. No physical complaints. He ate 100% of breakfast and lunch yesterday ; dinner was not charted. Reports mother made a visit over the weekend, and I will ask the counselor to obtain collateral from mother regarding her impressions of that visit. Vital Signs Temp Pulse Resp BP Pulse Ox 04/30/18 05:19 98.4 F 96 H 16 121/74 98 04/29/18 18:58 98.6 F 86 16 161/94 H 98 Intake and Output 04/29/18 04/30/18 04/30/18 22:59 06:59 14:59 Intake Total 580 / 580 Balance 580 / 580 Intake: Oral 480 / 480 Oral Supplement 100 / 100 Other: # Voids 3 Laboratory Results - last 24 hr 04/29/18 08:00 Sodium 139 Potassium 4.0 Chloride 104 Carbon Dioxide 26.1 Anion Gap 9 BUN 5 L Creatinine 0.72 Estimated GFR Greater than 89 Random Glucose 122 H Calcium 8.4 L Labs reviewed. Review of Systems All other systems reviewed negative except as stated in HPI Mental Status Examination Appearance: Appropriate Consciousness: Alert Orientation: Person, Place (At least) Motor Activity: Other (No motor abnormalities noted) Speech: Unremarkable Language: Adequate Fund of Knowledge: Adequate Attention and Concentration: Adequate Memory: Unremarkable Mood: Appropriate, Oppositional Affect: Appropriate Thought Process & Associations: Intact Thought Content: Appropriate Hallucination Type: None Delusion Type: None Suicidal Ideation: No Suicidal Plan: No Suicidal Intention: No Homicidal Ideation: No Homicidal Plan: No Homicidal Intention: No Insight: Poor (Perhaps improving) Judgment: Poor Mental Status Exam Remarks: No visible rash Assessment and Plan - Assessment (1) Schizophrenia Code(s): F20.9 - Schizophrenia, unspecified Status: Acute (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 I will begin to taper IV Ativan, and we will monitor for any recrudescence of catatonic symptoms. Continue Thorazine augmenting existing psychotropic regimen. Hospitalist input noted and appreciated. Continue to monitor on the inpatient unit. Continue other medications and care as ordered. Justification for Continued Inpatient Stay: Risk for decompensation in less restrictive environment Discharge Planning: Pending psychiatric stabilization Request Healthcare Surrogate/Guardian Advocate?: Yes (1) Schizophrenia Qualifiers: Schizophrenia type: unspecified Qualified Code(s): F20.9 - Schizophrenia, unspecified
[2018-04-30] MEDS: lamoTRIgine 100 MG Tablet PO SCH ×2 (09:28→20:44)
[2018-04-30] MEDS: OLANZapine 10 MG ODT Tablet PO SCH ×2 (09:28→20:44)
[2018-04-30 10:49] LABS: Anion Gap 7 meq/L (5-15); Blood Urea Nitrogen 5 mg/dL (7-18); Calcium 8.5 mg/dL (8.5-10.1); Carbon Dioxide 27.6 meq/L (21.0-32.0); Chloride 102 meq/L (98-107); Glomerular Filtration Rate Greater Than 89 mL/min (>89); Glucose,Random 93 mg/dL (74-106); Sodium 137 meq/L (136-145)
--- NOTE | 2018-04-30 11:29 | P.PN ---
Subjective Interval history: Patient is seen sitting up in bed. Doing much better-he now is conversing in full sentences and asking questions. He is eating and drinking normally per his report. No chest pain or shortness of breath. No nausea vomiting or diarrhea. No fever or chills. Physical Exam Vital signs: Vital Signs 04/29/18 18:58 04/30/18 05:19 Temperature 98.6 F 98.4 F Pulse Rate 86 96 H Respiratory Rate 16 16 Blood Pressure 161/94 H 121/74 Pulse Oximetry 98 98 Intake & Output 04/29/18 04/30/18 04/30/18 18:59 06:59 18:59 Intake Total 500 / 500 580 / 580 Balance 500 / 500 580 / 580 Intake: Oral 500 / 500 480 / 480 Oral Supplement 100 / 100 Other: # Voids 2 3 Narrative: GENERAL: Well-nourished, well-developed adult male in no obvious distress. SKIN: Very dry. Noted to have burn jackson on tips of first and middle finger of right hand. HEAD: Atraumatic. Normocephalic. CARDIOVASCULAR: Regular rate and rhythm. RESPIRATORY: No accessory muscle use. Clear to auscultation. Breath sounds equal bilaterally. GASTROINTESTINAL: Abdomen soft, non-tender, non-distended. Positive bowel sounds. MUSCULOSKELETAL: Extremities without clubbing, cyanosis, or edema. No obvious deformities. NEUROLOGICAL: Awake and alert. No obvious cranial nerve deficits. Motor grossly within normal limits. Normal speech. 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 History of severe hyponatremia - hospitalist service consulted for assistance in medical management. Schizoaffective disorder Bipolar disorder -Managed by psychiatry Increasingly catatonic; significantly improved -Concern for potential decompensation. -Start IVF fluid until patient is eating and drinking; stopped 04/29 -Labs/vitals currently stable Hyponatremia Related to psychogenic polydipsia -Limit access to free water -may only have fluids as provided by nursing/ dietary. -Monitor labs -A1c ordered to rule out diabetes - 5.6; thirst not incited by diabetes. DVT Prophylaxis Patient is ambulatory Discussed with: Patient and nurse. Patient appears to be medically stable at this time. Hospital service will sign off. Please reconsult if necessary
[2018-05-01] MEDS: ChlorproMAZINE 50 MG Tablet PO SCH ×2 (03:10→14:51)
[2018-05-01] MEDS: lamoTRIgine 100 MG Tablet PO SCH ×2 (08:20→20:32)
[2018-05-01] MEDS: OLANZapine 10 MG ODT Tablet PO SCH ×2 (08:20→20:32)
--- NOTE | 2018-05-01 11:16 | P.PNPSY ---
Subjective Remarks: Patient seen and examined. Chart reviewed. Case discussed with nursing staff. No behavioral issues noted overnight. Case discussed in treatment team. On my examination today, the patient is once again more interactive. No signs of worsening of catatonia with taper of IV Ativan. He has no SI or HI. No psychotic material. No reported side effects from medications. I do note a mild resting tremor. Patient notes that he has been trialed on anticholinergics in the past but has a history of urinary retention and is reluctant to try such an agent now. No physical complaints. Spoke with patient's mother/healthcare surrogate by phone today. She notes that the patient is improving in their telephone conversations but is not yet at his psychiatric baseline. She feels that it is important that he be further improved before discharge as he lives alone. We discussed patient's progress on the unit and medication changes. I obtained her consent for patient's clonazepam as we plan to return the patient to oral Klonopin following tapering of Ativan. She requests extended visiting hours as she is unable to drive in the dark, and I have placed an order for this. She confirms that the patient has a history of issues with urinary retention and also notes that the patient has had tremors from antipsychotic therapy in the past. However, she notes that these have often been self-limited. Vital Signs Temp Pulse Resp BP Pulse Ox 05/01/18 06:00 98 F 74 17 137/87 96 04/30/18 17:50 97.9 F 92 H 18 139/85 94 L Intake and Output 04/30/18 05/01/18 05/01/18 22:59 06:59 14:59 Intake Total 340 / 340 720 / 720 Balance 340 / 340 720 / 720 Intake: Oral 240 / 240 720 / 720 Oral Supplement 100 / 100 Other: # Voids 1 Labs reviewed. Review of Systems All other systems reviewed negative except as stated in HPI Mental Status Examination Appearance: Appropriate Consciousness: Alert Orientation: Person, Place (At least) Motor Activity: Other (Mild resting tremor. No cogwheeling. No dystonias or dyskinesias. No other motor abnormalities noted.) Speech: Unremarkable Language: Adequate Fund of Knowledge: Adequate Attention and Concentration: Adequate Memory: Unremarkable Mood: Appropriate Affect: Appropriate Thought Process & Associations: Intact Thought Content: Appropriate Hallucination Type: None Delusion Type: None Suicidal Ideation: No Suicidal Plan: No Suicidal Intention: No Homicidal Ideation: No Homicidal Plan: No Homicidal Intention: No Insight: Fair Mental Status Exam Remarks: Judgment is fair. 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 Continue other psychotropics as ordered. Continue to monitor on the inpatient unit. Continue other medications and care as ordered. Justification for Continued Inpatient Stay: Medication changes. Risk for decompensation in less restrictive environment. Discharge Planning: Pending psychiatric stabilization. Request Healthcare Surrogate/Guardian Advocate?: Yes (1) Schizophrenia Qualifiers: Schizophrenia type: unspecified Qualified Code(s): F20.9 - Schizophrenia, unspecified
[2018-05-02] MEDS: ChlorproMAZINE 50 MG Tablet PO SCH ×2 (03:39→14:12)
[2018-05-02] MEDS: OLANZapine 10 MG ODT Tablet PO SCH ×2 (08:32→20:13)
[2018-05-02] MEDS: lamoTRIgine 100 MG Tablet PO SCH ×2 (08:32→20:13)
--- NOTE | 2018-05-02 12:02 | P.PNPSY ---
Subjective Remarks: Patient seen and examined with nurse. Chart reviewed. Case discussed with nursing staff. On my examination today, the patient shows no signs of catatonia. He is awake and alert and fully conversant. He says that he had a visit with his outpatient senior case manager yesterday evening, and I have put out a call to senior case manager to discuss her impressions of that visit and have left generic voicemail requesting a call back. He is somewhat anxious about [place] [address]; reassurance provided. No SI or HI. No hallucinations today. No side effects from medications. We discuss plan for transition from IV Ativan back to oral Klonopin, his outpatient benzodiazepine. No physical complaints. Vital Signs Temp Pulse Resp BP Pulse Ox 05/02/18 06:29 97.3 F L 119 H 18 131/81 97 05/01/18 17:44 97.7 F 92 H 18 134/83 96 Intake and Output 05/01/18 05/02/18 05/02/18 22:59 06:59 14:59 Intake Total 240 / 240 240 / 240 2400 / 2400 Balance 240 / 240 240 / 240 2400 / 2400 Intake: Oral 240 / 240 240 / 240 2400 / 2400 Other: # Voids 1 Labs reviewed. No new labs. Review of Systems All other systems reviewed negative except as stated in HPI Mental Status Examination Appearance: Appropriate Consciousness: Alert Orientation: Person, Place (At least) Motor Activity: Other (Again mild resting tremor. No other motor abnormalities noted. No diaphoresis, no mydriasis, no other signs of GABAergic withdrawal.) Speech: Unremarkable Language: Adequate Fund of Knowledge: Adequate Attention and Concentration: Adequate Memory: Unremarkable Mood: Anxious Affect: Appropriate Thought Process & Associations: Intact Thought Content: Appropriate Hallucination Type: None Delusion Type: None Suicidal Ideation: No Suicidal Plan: No Suicidal Intention: No Homicidal Ideation: No Homicidal Plan: No Homicidal Intention: No Insight: Fair Judgment: Impulsive Assessment and Plan - Assessment (1) Schizophrenia Code(s): F20.9 - Schizophrenia, unspecified Status: Acute (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 Monitor for any return of catatonic signs or symptoms. Continue other psychotropic medications as ordered. Check BMP in the morning to ensure that sodium remains stable; no reports from nursing of fluid seeking behavior now that psychosis is under better control. Continue other medications and care as ordered. Justification for Continued Inpatient Stay: Medication changes. Risk for decompensation in less restrictive environment. Discharge Planning: Pending psychiatric stabilization. Request Healthcare Surrogate/Guardian Advocate?: Yes (1) Schizophrenia Qualifiers: Schizophrenia type: unspecified Qualified Code(s): F20.9 - Schizophrenia, unspecified
[2018-05-02] MEDS: clonazePAM 0.5 MG Tablet PO SCH ×2 (15:03→20:13)
[2018-05-03] MEDS: ChlorproMAZINE 50 MG Tablet PO SCH ×2 (02:47→16:03)
[2018-05-03 08:58] LABS: Carbon Dioxide 25.4 meq/L (21.0-32.0); Potassium 4.3 meq/L (3.5-5.1)
[2018-05-03] MEDS: clonazePAM 0.5 MG Tablet PO SCH ×3 (09:13→21:03)
[2018-05-03] MEDS: OLANZapine 10 MG ODT Tablet PO SCH ×2 (09:13→21:03)
[2018-05-03] MEDS: lamoTRIgine 100 MG Tablet PO SCH ×2 (09:13→21:03)
--- NOTE | 2018-05-03 11:13 | P.PNPSY ---
Subjective Remarks: Patient seen and examined. Chart reviewed. Case discussed with nursing staff. No behavioral issues noted overnight. On my examination today, the patient remains improved with respect to psychotic illness and catatonia. There are no signs of catatonia at present. He denies any psychotic symptoms. No SI or HI. Denies any desire to drink fluids excessively. No side effects from medications. No physical complaints. Patient is hopeful for discharge home tomorrow. He is agreeable to going to stay with his mother for closer monitoring. I did meet with mother and outpatient egg caser yesterday evening 05/02 along with counselor, Toro. Mother and egg caser had just finished a visit with the patient and found him much improved. Mother is agreeable to plan for discharge tomorrow, Monday. Vital Signs Temp Pulse Resp BP Pulse Ox 05/03/18 05:53 97.6 F 93 H 16 118/66 99 05/02/18 17:51 98.4 F 100 H 18 147/100 H 95 Intake and Output 05/02/18 05/03/18 05/03/18 22:59 06:59 14:59 Intake Total 960 / 960 240 / 240 360 / 360 Balance 960 / 960 240 / 240 360 / 360 Intake: Oral 960 / 960 240 / 240 360 / 360 Other: # Voids 1 Laboratory Results - last 24 hr 05/03/18 08:03 Sodium 136 Potassium 4.3 Chloride 100 Carbon Dioxide 25.4 Anion Gap 11 BUN 7 Creatinine 0.95 Estimated GFR 89 Random Glucose 168 H Calcium 9.0 Labs reviewed. Sodium level within normal limits. Review of Systems All other systems reviewed negative except as stated in HPI Mental Status Examination Appearance: Appropriate Consciousness: Alert Orientation: Person, Place (At least) Motor Activity: Other (No motor abnormalities noted. No signs of GABAergic withdrawal noted.) Speech: Unremarkable Language: Adequate Fund of Knowledge: Adequate Attention and Concentration: Adequate Memory: Unremarkable Mood: Appropriate Affect: Appropriate Thought Process & Associations: Intact Thought Content: Appropriate Hallucination Type: None Delusion Type: None Suicidal Ideation: No Homicidal Ideation: No Mental Status Exam Remarks: Insight and judgment are fair. 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 Continue Klonopin as ordered. Continue other psychotropic medications as ordered. Continue to monitor on the inpatient unit. Continue other medications and care as ordered. Justification for Continued Inpatient Stay: Monitor overnight to ensure no recurrence of catatonia. Discharge Planning: Anticipate discharge tomorrow, Monday Request Healthcare Surrogate/Guardian Advocate?: Yes (1) Schizophrenia Qualifiers: Schizophrenia type: unspecified Qualified Code(s): F20.9 - Schizophrenia, unspecified
--- NOTE | 2018-05-03 13:59 | P.TTN ---
- Patient Problems Problems: 1. Discharge planning 2. Medication compliance 3. Knowledge deficit 4. Lack of coping skills - Progress Toward Goals Provider Present: Dr. Kristopher Walker Provider Input: 05/01/2018; per doctor patient's medications are being adjusted , patient is also being tapered off of Ativan. Nurse(s) Present: RN Nurse Input: 05/01/2018; patient is compliant with treatment, taking meds and no behavior Psychiatric Counselors Present: Ivette Montiel [facility] Psychiatric Therapist Input: 05/01/2018; Patient is assign to the [facility] FACT team ; counselor will be contacting patient's mother to discuss treatment and dc planning Group Spec/RT/OT/ROBLES Present: TRAVIS Lemus Group Spec/RT/OT/ROBLES Input: 05/01/2018; patient has not participated with groups. - Documentation Teaching Recipient: Patient
[2018-05-04] MEDS: ChlorproMAZINE 50 MG Tablet PO SCH ×2 (03:14→14:16)
[2018-05-04 05:20] VITALS: BP 119/59; PULSE 73; RESP 16; TEMP 98.2; O2SAT 96
[2018-05-04] MEDS: clonazePAM 0.5 MG Tablet PO SCH ×2 (08:56→14:16)
[2018-05-04] MEDS: lamoTRIgine 100 MG Tablet PO SCH (08:56)
[2018-05-04] MEDS: OLANZapine 10 MG ODT Tablet PO SCH (08:56)
--- NOTE | 2018-05-04 11:58 | P.DSPSY ---
Psychiatry Discharge Summary Inpatient Psychiatric care?: Yes Advance Directives: No Mental Health Advance Directive: No Health Care Proxy: No - Admission Admission Date: April 26, 2018 08:22 - Admission Diagnosis (1) Schizophrenia Code(s): F20.9 - Schizophrenia, unspecified Brief History: The patient is a 37-year-old man, with a psychiatric history of schizophrenia, psychogenic polydipsia, OCD, previous psychiatric admissions, with olanzapine 10 mg twice daily, clonazepam 1 mg 3 times daily, Lamictal 100 mg, medical history hypertension, asthma, who presents to the emergency room under a Perez act initiated by psychiatrist at [facility]. History is vague. And patient can provide no meaningful history. On arrival he is combative, screaming, and threatening staff verbally. He was initially trying to hit staff and jump out of his wheelchair. He had to be immediately medicated his arrival to the ER with Zyprexa and Ativan and placed in locked restraints for the safety of the staff and himself. According to EMR, patient was discharged earlier today after being admitted for hyponatremia of 110. Hyponatremia was due to polydipsia which was caused by his schizophrenia. Patient stated previously that he drank 2 gallons of water. As per nurse report the patient has being very disruptive in the unit, walking naked, very difficult to redirect, talking to himself, very disorganized with sonia loosening of associations. Today my psychiatric evaluation I find him in his room, he is selectively mute, no answering any of my questions, when I left the room, he left behind me and took his clothing off int he unit. He had to be medicated again with Zyprexa 20 mg to calm him down. No collateral information could be reached at this moment per PPHx: Schizophrenia, multiple psychiatric hospitalizations, outpatient in [facility], he is on Lamictal 100 mg, clonazepam 1 mg 3 times daily, olanzapine 10 mg twice daily PMHx: Asthma Bipolar 1 disorder Hypertension Obsessive compulsive disorder Psychogenic polydipsia Schizoaffective disorder Surgical history unknown Substance Hx: Heavy smoker, 30-40 cigarettes/day, but there is no documentation of use of drugs or alcohol Social Hx: Unknown Family HX: Unknown Tobacco Use In Past 30 Days: Yes How Often Do You Have a Drink Containing Alcohol: Unable to Obtain Hospital Course: Patient was admitted to a locked, inpatient psychiatric unit. A general medical consultation was obtained. Appropriate precautions were in place throughout patient's hospital stay. Patient was seen and examined on the unit by psychiatry and also visited by counselor. Psychotropic medications were adjusted. Patient's presenting catatonia responded briskly to parenteral benzodiazepines and did not recur when patient was placed back on his oral benzodiazepine regimen. Patient's presenting psychosis and associated psychogenic polydipsia also responded rapidly and favorably to addition of Thorazine to his existing antipsychotic regimen. Patient tolerated medication changes well without side effects. Patient had improvement in presenting psychiatric symptomatology during the course of his hospital stay. There was no evidence of any suicidality or homicidality on the inpatient unit. Patient' s self-care improved significantly with the benefit of psychopharmacologic treatment. Collateral information was obtained from the patient's outpatient psychiatrist, outpatient human services case manager and also the patient's mother. Face-to- face meeting was held with patient's outpatient human services case manager and patient's mother prior to discharge. On the day of discharge: Patient seen and examined. Chart reviewed. Case discussed with nursing staff. No behavioral issues noted overnight. Case discussed in treatment team. On my examination today, the patient is in good spirits. He is requesting discharge from the inpatient psychiatric unit today. He denies any suicidal or homicidal ideation, intent or plan. I can elicit no depressive or hypomanic/manic symptoms. He denies any audiovisual hallucinations. He denies any command auditory hallucinations to hurt self or others. No delusional material elicited. No water craving, and recent sodium levels have been within normal limits. No evidence of catatonia on exam. He denies side effects from medications. He has no physical complaints. Suicide and violence risk assessment on day of discharge both suggest lower imminent risk from mental illness, and the patient's level of function is adequate for outpatient care. The patient does not meet criteria for involuntary psychiatric hospitalization at this time. He is requesting discharge from the inpatient psychiatric unit today, and I have no basis to retain him over his objection. Patient will be discharged today with psychiatric follow-up through the FACT team. Patient is also to follow up with primary care. I have counseled the patient to return to psychiatric emergency room for any concerning symptoms as part of a general safety plan. - Discharge Discharge Date: 05/04/18 - Discharge Diagnosis (1) Schizophrenia Diagnosis: Principal (Stabilized) Code(s): F20.9 - Schizophrenia, unspecified Status: Chronic (2) Psychogenic polydipsia Diagnosis: Secondary (Resolved with treatment of underlying psychosis) Code(s): R63.1 - Polydipsia; F54 - Psychological and behavioral factors associated with disorders or diseases classified elsewhere Status: Resolved Discharge Disposition: Home - Discharge Instructions Discharge Diet: Regular Diet Activities You Can Perform: Weight Bearing As Tolerat - Discharge Time > 30 minutes Mental Status Examination Appearance: Appropriate Consciousness: Alert Orientation: x4 Motor Activity: Other (No motoric abnormalities noted. No signs of any withdrawal noted.) Speech: Unremarkable Language: Adequate Fund of Knowledge: Adequate Attention and Concentration: Adequate Memory: Unremarkable Mood: Appropriate Affect: Appropriate, Euthymic Thought Process & Associations: Intact, Logical, Goal directed, Linear Thought Content: Appropriate Hallucination Type: None Delusion Type: None Suicidal Ideation: No Suicidal Plan: No Suicidal Intention: No Homicidal Ideation: No Homicidal Plan: No Homicidal Intention: No Insight: Adequate Judgment: Adequate Discharge/Advance Care Plan - Results Vital Signs: Last Vital Signs Temp 98.2 F 05/04/18 05:20 Pulse 73 05/04/18 05:20 Resp 16 05/04/18 05:20 BP 119/59 L 05/04/18 05:20 Pulse Ox 96 05/04/18 05:20 Lab Results: Laboratory Results Hemoglobin A1c 5.6 % (4.3-6.0) 04/27/18 09:40 Triglycerides 69 mg/dL (42-150) 04/27/18 09:40 Cholesterol 129 mg/dL (120-200) 04/27/18 09:40 LDL Cholesterol, Calc 54 mg/dL (0-99) 04/27/18 09:40 HDL Cholesterol 61.2 mg/dL (40.0-60.0) H 04/27/18 09:40 Summary of Procedures: None done Pending Results: None - Medications Number of antipsychotic medications at discharge: 3 Appropriate use of more than 1 antipsychotic med: Justification other than those in allowable values 1-3, document here: (Multiple antipsychotics required for acute stabilization. Outpatient regimen consisted of 2 antipsychotics, to which Thorazine was added.) - Discharge Care Plan Goals to Promote Your Health: * To prevent worsening of your condition and complications * To maintain your health at the optimal level Directions to Meet Your Goals: Take your medications as prescribed Follow your dietary instruction Follow activity as directed Keep your appointments as scheduled Take your immunizations and boosters as scheduled If your symptoms worsen call your PCP, if no PCP go to Urgent Care Center or Emergency Room For 23/01 questions related to your inpatient stay or results of tests pending at discharge, please contact Dr. Jose Alexandre MD at [phone] Smoking is Dangerous to Your Health. Avoid second hand smoking (1) Schizophrenia Qualifiers: Schizophrenia type: unspecified Qualified Code(s): F20.9 - Schizophrenia, unspecified (1) Schizophrenia Qualifiers: Schizophrenia type: unspecified Qualified Code(s): F20.9 - Schizophrenia, unspecified
--- NOTE | 2018-05-04 12:35 | P.TTN ---
- Patient Problems Problems: 1. Discharge planning 2. Medication compliance 3. Knowledge deficit 4. Lack of coping skills - Progress Toward Goals Provider Present: Dr. Kristopher Walker, Dr. Brandon Alexandre Provider Input: 05/04/18: Pt to discharge home today, per MD,. 05/01/2018; per doctor patient's medications are being adjusted, patient is also being tapered off of Ativan. Nurse(s) Present: RN Nurse Input: 05/01/2018; patient is compliant with treatment, taking meds and no behavior Psychiatric Counselors Present: Toro Mclaughlin Jr., [facility], Ivette Montile, [facility] Psychiatric Therapist Input: 05/04/18: Counselor in agreement with d/c plan. ; Patient is assign to the [facility] FACT team; counselor will be contacting patient's mother to discuss treatment and dc planning Group Spec/RT/OT/ROBLES Present: Rosendo Guerra OT, Mario Wright, ROBLES Group Spec/RT/OT/ROBLES Input: 05/04/18: Pt has not been attending groups. 2017; patient has not participated with groups. - Discharge Plan Pt to discharge home today. - Documentation Teaching Recipient: Patient
== END 2018-05-04 02:45 | disposition home or self-care (01) ==
LOC: NEPJ 16:05 → NEDA 04-26 08:22 → H270 04-26 12:00 → H4EA 04-27 16:07 → HCPC 04-30 08:57 → H4EA 04-30 09:01
PROVIDERS: ADMIT Psychiatry & Neurology Psychiatry; ATTEND Psychiatry & Neurology Psychiatry